=== PATIENT | female | born 1985 | race Caucasian/White ===

== ENCOUNTER → 2020-03-30 13:06 | Outpatient (CLI) | payer OTHER, SELFPAY ==
--- NOTE | ~2020-03-30 | US_ITS ---
US breast RT complete DATE: 03/30/2020 13:30 INDICATION: Painful area of right breast, no lumps. TECHNIQUE: Complete right breast real-time imaging COMPARISON: None FINDINGS: Right breast implant is noted. No suspicious mass or shadowing of the right breast is evident. No cyst is detected. IMPRESSION: BI-RADS Category 1: Negative Recommendation: Routine mammographic screening beginning at age 35 and 40 Reviewed, dictated and finalized at [facility] Reviewed, dictated and finalized at [facility].
== END ==
PROVIDERS: PCP Family Medicine; Visit Provider Family Medicine
DX: N64.4 Mastodynia (principal); Z96.89 Presence of other specified functional implants
CPT/HCPCS: 76641

== ENCOUNTER 2022-02-12 16:35 | Emergency (ER) | payer OTHER, SELFPAY ==
[2022-02-12 16:41] VITALS: BP 112/70; PULSE 81; RESP 16; TEMP 37; O2SAT 100
--- NOTE | 2022-02-12 16:50 | ED.FEMALEGU ---
HPI - Female Genitourinary General Chief complaint: Urogenital-Female Stated complaint: UTI SYMPTOMS Time Seen by Provider: 02/12/22 16:54 Source: patient and RN notes reviewed Mode of arrival: ambulatory Limitations: no limitations History of Present Illness HPI Narrative: 36-year-old female presents concern for urinary tract infection. She reports yesterday she started having frequency, urgency, dysuria, low back pain. She reports she has had urinary tract infections in the past. She denies body aches, chills, sweats, fever, abdominal pain, nausea, vomiting. She reports she took Azo today MD elicited complaint: UTI Related Data Allergies Allergy/AdvReac Type Severity Reaction Status Date / Time No Known Allergies Allergy Verified 02/12/22 16:42 Review of Systems Review of Systems: CONSTITUTIONAL: Denies malaise, chills, sweats, or fever. CARDIOVASCULAR: Denies chest pain, palpitations, or edema. RESPIRATORY: Denies cough or dyspnea. GASTROINTESTINAL: Denies abdominal pain, nausea, vomiting, diarrhea GENITOURINARY: Reports dysuria, frequency, urgency, suprapubic pressure. Denies flank pain or hematuria. SKIN: Denies rash or itching. MUSCULOSKELETAL: Reports low back pain. Denies myalgia. All systems reviewed & are unremarkable except as noted in HPI and below PMFSH Past Medical History Medical History (Updated 02/12/22 @ 16:58 by Yanet Stroud NP) Cholecystitis Migraines, neuralgic MVP (mitral valve prolapse) Surgical History Surgical History H/O breast augmentation History of tonsillectomy and adenoidectomy Hx laparoscopic cholecystectomy Social History Social History Social History: Second hand tobacco smoke exposure: No Alcohol intake: current Alcohol use details: Occasionally Substance use: never Substance use type: does not use Gender identity (if verbalized by the patient): Female Sexual Orientation (if Verbalized by the Patient): Straight or Heterosexual Comments At time of signature, agree with nursing past medical, surgical, social and family history. There is no relevant family history pertinent to the presenting complaint Exam Narrative: GENERAL: Well-appearing, well-nourished, and in no acute distress. HEAD: Normocephalic. EYES: PERRLA, conjunctivae clear. NECK: Supple. No lymphadenopathy CHEST: Clear to auscultation. No respiratory distress. HEART: Regular rate and rhythm. ABDOMEN: Soft, nontender upon palpation, nondistended, normal active bowel sounds, no palpable or pulsatile masses, no guarding. No CVA tenderness SKIN: Warm, dry, no rash. NEURO: Alert and oriented x3. PSYCH: Normal mood and affect Course Course Emergency Course: Patient is aware of diagnosis, understands and agrees to treatment plan. Anticipatory guidance given. Patient agrees to follow-up as directed and is aware of reasons to seek care at the emergency department. Portions of this record may have been created with voice recognition software Level of Care: Express Care Visit Vital Signs Vital signs: Vital Signs Temperature 98.6 F 02/12/22 16:41 Pulse Rate 81 02/12/22 16:41 Respiratory Rate 16 02/12/22 16:41 Blood Pressure 112/70 02/12/22 16:41 Pulse Oximetry 100 02/12/22 16:41 Oxygen Delivery Room Air 02/12/22 16:41 Temperature 98.6 F 02/12/22 16:41 Pulse Rate 81 02/12/22 16:41 Respiratory Rate 16 02/12/22 16:41 Blood Pressure 112/70 02/12/22 16:41 Pulse Oximetry 100 02/12/22 16:41 Oxygen Delivery Room Air 02/12/22 16:41 Reviewed. MDM - Female Genitourinary MDM Narrative Medical decision making narrative: Exam findings and UA show no acute concerns or changes; patient is non-toxic appearing and is in no distress. Patient is appropriate for outpatient treatment and follow-up. Differential Diagnosis Differential diagno
== END 2022-02-12 17:04 | disposition home or self-care (01) ==
PROVIDERS: Emergency Provider Nurse Practitioner; PCP Family Medicine
DX: R35.0 Frequency of micturition (principal); R39.15 Urgency of urination; R30.0 Dysuria; M54.50 Low back pain, unspecified; I34.1 Nonrheumatic mitral (valve) prolapse
CPT/HCPCS: 81003; 87077; 87086; 87186; 99213; G0463

== ENCOUNTER 2022-06-01 00:45 | Day surgery (SDC) | payer OTHER, SELFPAY ==
[2022-05-24 15:05] VITALS: BMI 28.5
[2022-06-01 11:09] VITALS: BP 115/56; PULSE 71; RESP 20; TEMP 36.6; O2SAT 100; BMI 27.8
[2022-06-01] MEDS: LACTATED RINGERS 1,000 ML 150 ML IV CONT (11:17)
--- NOTE | 2022-06-01 11:57 | PM.HPGS ---
History of Present Illness History of Present Illness Consent: Risks, benefits, and alternatives have been discussed and questions answered. Patient agrees to proceed with procedure. Chief complaint: IBS Narrative: Elayne Alvarez is a 36 year old female with intermittent abdominal cramping and diarrhea after eating, never had colonoscopy. Diagnosed with ibs and using elavil with hyoscyamine Review of Systems Constitutional: Constitutional: Denies headache(s) and Denies weakness Eyes: Eyes: Denies blurry vision ENT: Reports Normal hearing present, Denies headache(s) and Denies neck pain Cardiovascular: Cardiovascular: Denies chest pain and Denies dyspnea Respiratory: Respiratory: Denies dyspnea Gastrointestinal: Gastrointestinal: Reports no additional gastrointestinal complaints Genitourinary: Genitourinary: Denies dysuria Musculoskeletal: Musculoskeletal: Denies neck pain Integumentary/Breasts: Skin/Breast: Denies dry skin Neurologic: Reports Normal hearing present, Denies headache(s) and Denies weakness Psychiatric: Psychiatric: Denies anxiety Endocrine: Endocrine: Denies change in body appearance Hematologic/Lymphatic: Hematologic/Lymphatic: Denies easy bleeding Allergic/Immunologic: Allergic/Immunologic: Denies urticaria PMFSH Past Medical History Medical History Cholecystitis Migraines, neuralgic MVP (mitral valve prolapse) Surgical History Surgical History H/O breast augmentation History of tonsillectomy and adenoidectomy Hx laparoscopic cholecystectomy Social History Social History (Updated 05/03/22 @ 09:28 by Renae Jama) Social History: Smoking status: Never smoker Second hand tobacco smoke exposure: No Alcohol intake: current Alcohol use details: Occasionally Substance use: never Substance use type: does not use Living arrangements: with family Gender identity (if verbalized by the patient): Female Sexual Orientation (if Verbalized by the Patient): Straight or Heterosexual Spiritual care concerns: No Meds Home Medications and Allergies Home Medications Medication Instructions Recorded Confirmed Type escitalopram oxalate 20 mg tablet 20 mg PO DAILY #90 tabs 02/17/22 05/24/22 Rx rimegepant 75 mg disintegrating 75 mg PO ONCE PRN migraine 05/03/22 05/24/22 Rx tablet (Nurtec ODT) headache #20 tabs amitriptyline 10 mg tablet 20 mg PO HS 05/24/22 05/24/22 History hyoscyamine sulfate 0.125 mg tablet 0.125 mg PO QID PRN Spasms 05/24/22 05/24/22 History ondansetron HCl 4 mg tablet 4 mg PO Q8H PRN Migraine Headache 05/24/22 05/24/22 History Allergies Allergy/AdvReac Type Severity Reaction Status Date / Time sulfamethoxazole Allergy Mild Dizziness Verified 06/01/22 11:07 [From Bactrim] trimethoprim [From Bactrim] Allergy Mild Dizziness Verified 06/01/22 11:07 Vital Signs Vital Signs - 24 hr 06/01/22 11:09 Temperature 97.8 F Pulse Rate 71 Respiratory Rate 20 Blood Pressure 115/56 L Pulse Oximetry 100 Oxygen Delivery Room Air Exam Const: General: comfortable and no acute distress HENMT: Face/Nose/Sinus: Normal nares present Eyes: General: appearance normal, both eyes and all related structures Neck: Neck: no JVD Resp: Auscultation: clear to auscultation bilaterally Cardio: Rate: regular rate Rhythm: regular rhythm GI: Inspection: non-distended GI Palp: Yes Soft to palpation Skin: General skin exam: normal color Neuro: General: gait normal Speech: normal speech Extrem: General: normal to inspection Psych: Mental Status: mental status grossly normal Assessment and Plan Assessment and plan (1) IBS (irritable bowel syndrome): Code(s): K58.9 - Irritable bowel syndrome without diarrhea Status: Acute Assessment and Plan: colonscopy with random bx
--- NOTE | 2022-06-01 12:01 | WPDANESEPPF ---
Anes - Initial Pre Proc Eval Procedure: Operation Date: 06/01/22 12:30 Proposed Procedures p Colonoscopy - Twin Ferraro MD Date/Time: 06/01/22 12:01 Surgeon: Twin Ferraro MD Pre Op Diagnosis: IBS Patient Data Age: 36 Gender: F Height: 1.63 m Weight: 73.5 kg Last Vital Signs Temp 97.8 F 06/01/22 11:09 Pulse 71 06/01/22 11:09 Resp 20 06/01/22 11:09 BP 115/56 L 06/01/22 11:09 Pulse Ox 100 06/01/22 11:09 O2 Del Method Room Air 06/01/22 11:09 Allergies Allergy/AdvReac Type Severity Reaction Status Date / Time sulfamethoxazole Allergy Mild Dizziness Verified 06/01/22 11:07 [From Bactrim] trimethoprim [From Bactrim] Allergy Mild Dizziness Verified 06/01/22 11:07 Home Medications Medication Instructions Recorded Confirmed Type escitalopram oxalate 20 mg tablet 20 mg PO DAILY #90 tabs 02/17/22 05/24/22 Rx rimegepant 75 mg disintegrating 75 mg PO ONCE PRN migraine 05/03/22 05/24/22 Rx tablet (Nurtec ODT) headache #20 tabs amitriptyline 10 mg tablet 20 mg PO HS 05/24/22 05/24/22 History hyoscyamine sulfate 0.125 mg tablet 0.125 mg PO QID PRN Spasms 05/24/22 05/24/22 History ondansetron HCl 4 mg tablet 4 mg PO Q8H PRN Migraine Headache 05/24/22 05/24/22 History Patient hx anesthesia problems: none Family hx anesthesia problems: none Results Review: All pre-operative results and documents have been reviewed as part of the pre-operative evaluation. [facility] Past Medical History Medical History Cholecystitis Migraines, neuralgic MVP (mitral valve prolapse) Surgical History Surgical History H/O breast augmentation History of tonsillectomy and adenoidectomy Hx laparoscopic cholecystectomy Social History Social History (Updated 05/03/22 @ 09:28 by Renae Mata Social History: Smoking status: Never smoker Second hand tobacco smoke exposure: No Alcohol intake: current Alcohol use details: Occasionally Substance use: never Substance use type: does not use Living arrangements: with family Gender identity (if verbalized by the patient): Female Sexual Orientation (if Verbalized by the Patient): Straight or Heterosexual Spiritual care concerns: No Anes - Eval Final PreProcedure Day of Procedure 06/01/22 12:01 Patient weight: normal Heart: regular rate and rhythm Lungs: clear to auscultation Airway: Mallampati scale class II Neurological: alert and oriented Last oral intake: >/= 8 hours ASA classification: II Emergent: no Anesthetic plan: proceed Anesthesia type and monitoring: general GIVS and standard monitoring Results Review: All pre-operative results and documents have been reviewed as part of the pre-operative evaluation. Informed Consent: The patient's anesthetic plan and its attendant risks and benefits were discussed with the patient/family/POA. Questions were solicited and answers provided to the satisfaction of the patient/family/POA.
[2022-06-01 12:20] VITALS: BP 101/61; PULSE 65; RESP 19; O2SAT 100
[2022-06-01 12:30] VITALS: BP 109/72; PULSE 50; RESP 16; O2SAT 100
[2022-06-01 12:40] VITALS: BP 125/67; PULSE 66; RESP 23; O2SAT 100
== END 2022-06-01 12:47 | disposition home or self-care (01) ==
PROVIDERS: PCP Family Medicine; Visit Provider Internal Medicine Gastroenterology
PROC: 0DJD8ZZ Inspection of Lower Intestinal Tract, Via Natural or Artificial Opening Endoscopic (ICD-10-PCS; CPT 45378; principal; 2022-06-01 12:30)
DX: K58.0 Irritable bowel syndrome with diarrhea (principal); K57.30 Diverticulosis of large intestine without perforation or abscess without bleeding; I34.1 Nonrheumatic mitral (valve) prolapse
CPT/HCPCS: 45380; 88305; J2704; J7120

== ENCOUNTER 2022-08-09 00:22 | Day surgery (SDC) | payer OTHER, SELFPAY ==
[2022-07-26 14:25] VITALS: BMI 29.5
--- NOTE | 2022-08-09 07:24 | WPDANESEPPF ---
Anes - Initial Pre Proc Eval Procedure: Operation Date: 08/09/22 09:00 Proposed Procedures p Esophagogastroduodenoscopy - Twin Ferraro MD Date/Time: 08/09/22 07:24 Surgeon: Twin Ferraro MD Pre Op Diagnosis: N&V, GERD Patient Data Age: 36 Gender: F Height: 1.63 m Weight: 78 kg Allergies Allergy/AdvReac Type Severity Reaction Status Date / Time sulfamethoxazole AdvReac Mild Dizziness Verified 08/09/22 07:44 [From Bactrim] trimethoprim [From Bactrim] AdvReac Mild Dizziness Verified 08/09/22 07:44 Home Medications Medication Instructions Recorded Confirmed Type rimegepant 75 mg disintegrating 75 mg PO ONCE PRN migraine 05/03/22 08/09/22 Rx tablet (Nurtec ODT) headache #20 tabs amitriptyline 10 mg tablet 20 mg PO HS 05/24/22 08/09/22 History omeprazole 40 mg capsule,delayed 40 mg PO DAILY #30 caps 07/05/22 08/09/22 Rx release escitalopram oxalate 20 mg tablet 20 mg PO DAILY #90 tabs 08/06/22 08/09/22 Rx Patient hx anesthesia problems: none Family hx anesthesia problems: none Results Review: All pre-operative results and documents have been reviewed as part of the pre-operative evaluation. [facility] Past Medical History Medical History (Updated 08/09/22 @ 07:25 by Lakhwinder Baez, ) Anxiety Cholecystitis Hyperlipidemia Migraines, neuralgic MVP (mitral valve prolapse) KENNEDY and COPD overlap syndrome Surgical History Surgical History H/O breast augmentation History of tonsillectomy and adenoidectomy Hx laparoscopic cholecystectomy Social History Social History (Updated 07/05/22 @ 10:24 by Renae Jama) Social History: Smoking status: Never smoker Second hand tobacco smoke exposure: No Alcohol intake: current Alcohol use details: Occasionally Substance use: never Substance use type: does not use Living arrangements: with family Occupation/Education: occupation Gender identity (if verbalized by the patient): Female Sexual Orientation (if Verbalized by the Patient): Straight or Heterosexual Spiritual care concerns: No Anes - Eval Final PreProcedure Day of Procedure 08/09/22 07:24 Patient weight: overweight Heart: regular rate and rhythm Lungs: clear to auscultation Airway: Mallampati scale class II Neurological: alert and oriented Last oral intake: >/= 8 hours ASA classification: III Emergent: no Anesthetic plan: proceed Anesthesia type and monitoring: general GIVS and standard monitoring Results Review: All pre-operative results and documents have been reviewed as part of the pre-operative evaluation. Informed Consent: The patient's anesthetic plan and its attendant risks and benefits were discussed with the patient/family/POA. Questions were solicited and answers provided to the satisfaction of the patient/family/POA.
[2022-08-09 07:49] VITALS: BP 110/62; PULSE 64; RESP 16; TEMP 36; O2SAT 100; BMI 28.8
[2022-08-09] MEDS: LACTATED RINGERS 1,000 ML 150 ML IV CONT (07:56)
--- NOTE | 2022-08-09 08:27 | PM.HPGS ---
History of Present Illness History of Present Illness Consent: Risks, benefits, and alternatives have been discussed and questions answered. Patient agrees to proceed with procedure. Chief complaint: N&V, GERD Narrative: Elayne Alvarez is a 36 year old female with ibs on elavil, unremarkable colonoscopy. Still with belching, fullness sensation after eating and diarrhea. Recently started on omeprazole and too early to say if any difference Review of Systems Constitutional: Constitutional: Denies headache(s) and Denies weakness Eyes: Eyes: Denies blurry vision ENT: Reports Normal hearing present, Denies headache(s) and Denies neck pain Cardiovascular: Cardiovascular: Denies chest pain and Denies dyspnea Respiratory: Respiratory: Denies dyspnea Gastrointestinal: Gastrointestinal: Reports no additional gastrointestinal complaints Genitourinary: Genitourinary: Denies dysuria Musculoskeletal: Musculoskeletal: Denies neck pain Integumentary/Breasts: Skin/Breast: Denies dry skin Neurologic: Reports Normal hearing present, Denies headache(s) and Denies weakness Psychiatric: Psychiatric: Denies anxiety Endocrine: Endocrine: Denies change in body appearance Hematologic/Lymphatic: Hematologic/Lymphatic: Denies easy bleeding Allergic/Immunologic: Allergic/Immunologic: Denies urticaria PMFSH Past Medical History Medical History (Updated 08/09/22 @ 07:25 by Lakhwinder Baez, ) Anxiety Cholecystitis Hyperlipidemia Migraines, neuralgic MVP (mitral valve prolapse) [place]EDY and COPD overlap syndrome Surgical History Surgical History H/O breast augmentation History of tonsillectomy and adenoidectomy Hx laparoscopic cholecystectomy Social History Social History (Updated 07/05/22 @ 10:24 by Renae Jama) Social History: Smoking status: Never smoker Second hand tobacco smoke exposure: No Alcohol intake: current Alcohol use details: Occasionally Substance use: never Substance use type: does not use Living arrangements: with family Occupation/Education: occupation Gender identity (if verbalized by the patient): Female Sexual Orientation (if Verbalized by the Patient): Straight or Heterosexual Spiritual care concerns: No Meds Home Medications and Allergies Home Medications Medication Instructions Recorded Confirmed Type rimegepant 75 mg disintegrating 75 mg PO ONCE PRN migraine 05/03/22 08/09/22 Rx tablet (Nurtec ODT) headache #20 tabs amitriptyline 10 mg tablet 20 mg PO HS 05/24/22 08/09/22 History omeprazole 40 mg capsule,delayed 40 mg PO DAILY #30 caps 07/05/22 08/09/22 Rx release escitalopram oxalate 20 mg tablet 20 mg PO DAILY #90 tabs 08/06/22 08/09/22 Rx Allergies Allergy/AdvReac Type Severity Reaction Status Date / Time sulfamethoxazole AdvReac Mild Dizziness Verified 08/09/22 07:44 [From Bactrim] trimethoprim [From Bactrim] AdvReac Mild Dizziness Verified 08/09/22 07:44 Vital Signs Vital Signs - 24 hr 08/09/22 07:49 Temperature 96.8 F L Pulse Rate 64 Respiratory Rate 16 Blood Pressure 110/62 Pulse Oximetry 100 Oxygen Delivery Room Air Exam Const: General: comfortable and no acute distress HENMT: Face/Nose/Sinus: Normal nares present Eyes: General: appearance normal, both eyes and all related structures Neck: Neck: no JVD Resp: Auscultation: clear to auscultation bilaterally Cardio: Rate: regular rate Rhythm: regular rhythm GI: Inspection: non-distended GI Palp: Yes Soft to palpation Skin: General skin exam: normal color Neuro: General: gait normal Speech: normal speech Extrem: General: normal to inspection Psych: Mental Status: mental status grossly normal Assessment and Plan Assessment and plan (1) IBS (irritable bowel syndrome): Code(s): K58.9 - Irritable bowel syndrome without diarrhea Status: Acute Assessment and Plan:
[2022-08-09 08:40] VITALS: BP 87/54; PULSE 65; RESP 22; O2SAT 96
[2022-08-09 08:50] VITALS: BP 91/59; PULSE 64; RESP 20; O2SAT 98
[2022-08-09 09:00] VITALS: BP 108/71; PULSE 58; RESP 22; O2SAT 98
== END 2022-08-09 09:12 | disposition home or self-care (01) ==
PROVIDERS: PCP Family Medicine; Visit Provider Internal Medicine Gastroenterology
PROC: 0DJ08ZZ Inspection of Upper Intestinal Tract, Via Natural or Artificial Opening Endoscopic (ICD-10-PCS; CPT 43235; principal; 2022-08-09 09:00)
DX: K29.70 Gastritis, unspecified, without bleeding (principal); F41.9 Anxiety disorder, unspecified; I34.1 Nonrheumatic mitral (valve) prolapse; G47.33 Obstructive sleep apnea (adult) (pediatric)
CPT/HCPCS: 43239; 88305; J2704; J7120

== ENCOUNTER 2022-11-11 12:52 | Emergency (ER) | payer OTHER, SELFPAY ==
--- NOTE | 2022-11-11 13:01 | ED.URI ---
HPI - URI/Sore Throat General Chief Complaint: Upper Respiratory Infection Stated Complaint: SINUS CONGESITON/EAR THROBBING Time Seen by Provider: 11/11/22 13:01 Source: patient Mode of arrival: ambulatory Limitations: no limitations History of Present Illness HPI Narrative: 37-year-old female presents with complaint sinus congestion, postnasal drainage for the past 2-3 weeks. Reports pressure to right-sided face. Reports right ear pain for 5 days. Afebrile. States that she uses Flonase daily. When right ear pain started she started taking Sudafed. No relief of symptoms. All systems reviewed and negative except as noted above. Related Data Allergies Allergy/AdvReac Type Severity Reaction Status Date / Time sulfamethoxazole AdvReac Mild Dizziness Verified 08/16/22 10:03 [From Bactrim] trimethoprim [From Bactrim] AdvReac Mild Dizziness Verified 08/16/22 10:03 Review of Systems Review of Systems: CONSTITUTIONAL: Denies fever, chills, or sweats. EYES: Denies visual changes, redness, or discharge. ENT: Reports rhinorrhea, congestion, postnasal drainage, right ear pain. Denies sore throat CARDIOVASCULAR: Denies chest pain, palpitations, or edema. RESPIRATORY: Denies cough or dyspnea. GASTROINTESTINAL: Denies abdominal pain, nausea, vomiting, or diarrhea. GENITOURINARY: Denies dysuria or hematuria. SKIN: Denies rash or itching. MUSCULOSKELETAL: Denies back pain, joint pain, or myalgia. NEUROLOGIC: Denies headache, numbness, or weakness. PSYCHIATRIC: Denies anxiety or depression. All other systems reviewed are negative, except as documented in HPI. [facility] Past Medical History Medical History Anxiety Cholecystitis Hyperlipidemia Migraines, neuralgic MVP (mitral valve prolapse) [place] and COPD overlap syndrome Surgical History Surgical History H/O breast augmentation History of tonsillectomy and adenoidectomy Hx laparoscopic cholecystectomy Social History Social History (Updated 08/17/22 @ 22:03 by Meron Moses MD) Social History: Smoking status: Never smoker Second hand tobacco smoke exposure: No Alcohol intake: current Alcohol use details: Occasionally Substance use: never Substance use type: does not use Lack of Transportation: No Lack of Food: Never True Current Housing: I Have Housing Concerned About Future Housing: No Difficulty Paying Gas/Electric Bills: No Difficulty Paying for Meds: No Currently Unemployed: No Education: Bachelor's Degree Living arrangements: with family Occupation/Education: occupation Gender identity (if verbalized by the patient): Female Sexual Orientation (if Verbalized by the Patient): Straight or Heterosexual Spiritual care concerns: No Agree to blood products: Yes Comments At time of signature, agree with nursing past medical, surgical, social and family history. There is no relevant family history pertinent to the presenting complaint. Exam Narrative: GENERAL: This is a well-nourished, well-developed patient, in no apparent distress. HEAD: normocephalic, atraumatic. EYES: PERRL. Sclera clear/white. Vision is grossly intact. EARS: External ears normal, auditory canals clear and without drainage, fluid and mild erythema to right ear with slight bulging. No perforation bilaterally. Left TM is normal. NOSE: External nose normal with clear nasal drainage, erythema and swelling to both nares. Left-sided frontal and maxillary sinus tenderness. THROAT: Mucous membranes moist, postnasal drainage noted. NECK: Neck supple, non-tender without lymphadenopathy, masses or thyromegaly. CARDIOVASCULAR: Regular rate and rhythm without murmurs, gallops, or rubs. RESPIRATORY: Clear to auscultation. Breath sounds equal bilaterally. No wheezes, rales, or rhonchi. SKIN: warm, Dry, intact with no suspicious lesions or rash, good
[2022-11-11 13:02] VITALS: BP 105/74; PULSE 69; RESP 16; TEMP 36.4; O2SAT 100
== END 2022-11-11 13:15 | disposition home or self-care (01) ==
PROVIDERS: Emergency Provider Nurse Practitioner Family; PCP Family Medicine
DX: J01.90 Acute sinusitis, unspecified (principal); H65.01 Acute serous otitis media, right ear; E78.5 Hyperlipidemia, unspecified; I34.1 Nonrheumatic mitral (valve) prolapse
CPT/HCPCS: 99213; G0463

== ENCOUNTER 2022-12-22 14:43 | Emergency (ER) | payer OTHER, SELFPAY ==
[2022-12-22 14:58] VITALS: BP 109/77; PULSE 78; RESP 16; TEMP 37.3; O2SAT 100
--- NOTE | 2022-12-22 15:01 | ED.WOUNDLAC ---
HPI - Wound/Laceration General Chief Complaint: Wound/Laceration Stated Complaint: left hand lac Time Seen by Provider: 12/22/22 15:01 Source: patient and RN notes reviewed History of Present Illness HPI narrative: Patient is a 37-year-old female presents to urgent care with complaints of a puncture wound to the left hand. Patient states that she was doing dishes and a knife punctured the web between the thumb and index finger. Patient states that happened just prior to arrival. Patient is unsure she is up-to-date on her tetanus. No other acute complaints. No acute distress noted. Patient aware of the plan of care. Some parts of this dictation were generated by voice recognition software and may contain typographical and/or grammatical inaccuracies. Related Data Allergies Allergy/AdvReac Type Severity Reaction Status Date / Time sulfamethoxazole AdvReac Mild Dizziness Verified 12/22/22 15:11 [From Bactrim] trimethoprim [From Bactrim] AdvReac Mild Dizziness Verified 12/22/22 15:11 Review of Systems Review of Systems: CONSTITUTIONAL: Denies fever, chills, or sweats. EYES: Denies visual changes, redness, or discharge. ENT: Denies rhinorrhea, congestion, sore throat, or otalgia. CARDIOVASCULAR: Denies chest pain, palpitations, or edema. RESPIRATORY: Denies cough or dyspnea. GASTROINTESTINAL: Denies abdominal pain, nausea, vomiting, or diarrhea. GENITOURINARY: Denies dysuria or hematuria. SKIN: Reports of a puncture wound between the web of the left thumb and index finger MUSCULOSKELETAL: Denies back pain, joint pain, or myalgia. NEUROLOGIC: Denies headache, numbness, or weakness. All other systems reviewed are negative, except as documented in HPI. [facility] Past Medical History Medical History Anxiety Cholecystitis Hyperlipidemia Migraines, neuralgic MVP (mitral valve prolapse) KENNEDY and COPD overlap syndrome Surgical History Surgical History H/O breast augmentation History of tonsillectomy and adenoidectomy Hx laparoscopic cholecystectomy Social History Social History Social History: Smoking status: Never smoker Second hand tobacco smoke exposure: No Alcohol intake: current Alcohol use details: Occasionally Substance use: never Substance use type: does not use Lack of Transportation: No Lack of Food: Never True Current Housing: I Have Housing Concerned About Future Housing: No Difficulty Paying Gas/Electric Bills: No Difficulty Paying for Meds: No Currently Unemployed: No Education: Bachelor's Degree Living arrangements: with family Occupation/Education: occupation Gender identity (if verbalized by the patient): Female Sexual Orientation (if Verbalized by the Patient): Straight or Heterosexual Spiritual care concerns: No Agree to blood products: Yes Comments At the time of my signature, I reviewed and agree with the nursing past medical, surgical, social, and family history. There is no relevant family history pertinent to the patient complaint. Exam Narrative: GENERAL: This is a well-nourished, well-developed patient, in no apparent distress. HEAD: normocephalic, atraumatic. EYES: PERRL. Sclera clear/white. Vision is grossly intact. EARS: External ears normal NOSE: External nose normal with no obvious nasal discharge, nares without redness, no rhinorrhea. THROAT: Mucous membranes moist NECK: Neck supple, SKIN: 0.25 cm puncture wound between the web of the left thumb and index finger. Warm, intact with no suspicious lesions or rash, good texture and turgor. NEURO: awake, alert, and oriented to person, place and time. There were no obvious focal neurologic abnormalities. EXTREMITIES: No clubbing, cyanosis, or edema. No joint tenderness, effusion, or edema noted. Range of motion left ex
[2022-12-22] MEDS: TETANUS,DIPHTHERIA,AC PERTUSSIS ADULT (0.5 ML) BOOSTRIX IM (15:08)
== END 2022-12-22 15:26 | disposition home or self-care (01) ==
PROVIDERS: Emergency Provider Nurse Practitioner Family; PCP Family Medicine
DX: S61.412A Laceration without foreign body of left hand, initial encounter (principal); W26.0XXA Contact with knife, initial encounter; Y93.G1 Activity, food preparation and clean up; Z23 Encounter for immunization; E78.5 Hyperlipidemia, unspecified; I34.1 Nonrheumatic mitral (valve) prolapse; J44.9 Chronic obstructive pulmonary disease, unspecified; F41.9 Anxiety disorder, unspecified
CPT/HCPCS: 12001; 90471; 90715; 99212; G0463

== ENCOUNTER 2023-04-08 11:36 | Emergency (ER) | payer OTHER, SELFPAY ==
[2023-04-08 11:44] VITALS: BP 112/66; PULSE 65; RESP 18; TEMP 36.8; O2SAT 100
--- NOTE | 2023-04-08 12:05 | PC.NURSE ---
NO CULTURE PER PROVIDER. PT. SENT TO ER.
--- NOTE | 2023-04-08 12:08 | ED.ABDPAIN ---
HPI - Abdominal Pain General Chief Complaint: Abdominal Pain Stated Complaint: right side pain Source: patient Mode of arrival: ambulatory Limitations: no limitations History of Present Illness HPI narrative: 37-year-old female presents to [facility] with complaints of pain to right lower abdomen, nausea and decreased appetite since yesterday. Patient denies fever, body aches or chills. Patient reports the pain is worse when she is sitting. Last menstrual period was 2 weeks ago. Patient denies recent travel. Patient denies history of kidney stones. MD elicited complaint: abdominal pain Onset (ago): day(s) (1) Relieving factors: nothing Associated symptoms: nausea Related Data Allergies Allergy/AdvReac Type Severity Reaction Status Date / Time sulfamethoxazole AdvReac Mild Dizziness Verified 12/22/22 15:11 [From Bactrim] trimethoprim [From Bactrim] AdvReac Mild Dizziness Verified 12/22/22 15:11 Review of Systems Constitutional: Constitutional: Denies chills, Denies fatigue, Denies fever(s) and Denies weakness ENT: Denies epistaxis and Denies nasal congestion Cardiovascular: Cardiovascular: Denies chest pain Respiratory: Respiratory: Denies cough, Denies dyspnea and Denies wheezing Gastrointestinal: Gastrointestinal: Reports abdominal pain, Denies bloating, Denies constipation, Denies heartburn, Denies diarrhea, Reports nausea and Denies vomiting Musculoskeletal: Musculoskeletal: Denies muscle cramps Integumentary/Breasts: Skin/Breast: Denies rash and Denies skin ulcer Neurologic: Denies syncope and Denies headache(s) PMFSH Past Medical History Medical History Anxiety Cholecystitis Hyperlipidemia Migraines, neuralgic MVP (mitral valve prolapse) KENNEDY and COPD overlap syndrome Surgical History Surgical History H/O breast augmentation History of tonsillectomy and adenoidectomy Hx laparoscopic cholecystectomy Social History Social History Social History: Smoking status: Never smoker Second hand tobacco smoke exposure: No Alcohol intake: current Alcohol use details: Occasionally Substance use: never Substance use type: does not use Lack of Transportation: No Lack of Food: Never True Current Housing: I Have Housing Concerned About Future Housing: No Difficulty Paying Gas/Electric Bills: No Difficulty Paying for Meds: No Currently Unemployed: No Education: Bachelor's Degree Living arrangements: with family Occupation/Education: occupation Gender identity (if verbalized by the patient): Female Sexual Orientation (if Verbalized by the Patient): Straight or Heterosexual Spiritual care concerns: No Agree to blood products: Yes Comments At time of signature, I agree with nursing past medical, surgical, social and family history. There is no relevant family history pertinent to the presenting complaint. Exam Const: General: healthy appearing and no acute distress Nutritional Appearance: well nourished Orientation/consciousness: patient oriented x3 Limitations: no limitations HENMT: Head: normal to inspection Eyes: Conjunctivae: conjunctivae normal Neck: Neck: normal visual inspection Resp: Effort & Inspection: normal respiratory effort and not labored Auscultation: clear to auscultation bilaterally, no crackles, no rales and no rhonchi Cardio: Rate: regular rate Rhythm: regular rhythm Heart sounds: no murmurs GI: GI Palp: Yes Soft to palpation, Yes Tenderness to palpation present (GI), No Guarding due to palpation present (GI), No Rigid due to palpation, No Hernia present and No Palpable mass present Auscultation: normal bowel sounds Other: Pain noted to right lower quadrant of abdomen upon palpation. There is no area of swelling noted. : General: Yes bladder normal to pa
== END 2023-04-08 12:10 | disposition short-term general hospital (02) ==
PROVIDERS: Emergency Provider Nurse Practitioner Family; PCP Family Medicine
DX: R10.31 Right lower quadrant pain (principal); E78.5 Hyperlipidemia, unspecified; I34.1 Nonrheumatic mitral (valve) prolapse
CPT/HCPCS: 81003; 81025; 99212; G0463

== ENCOUNTER 2024-02-06 15:52 | Outpatient (CLI) | payer OTHER, SELFPAY ==
--- NOTE | ~2024-02-06 | XR_ITS ---
EXAM: XR abdomen obstructive series DATE: 02/06/2024 16:12 HISTORY: R14.0 - Abdominal distension (gaseous) . COMPARISON: None available. FINDINGS: Clear lung bases. Cholecystectomy clips Normal bowel gas pattern. No organomegaly. Multipl e pelvic phleboliths. No free air. Regional bones and soft tissues normal for age. IMPRESSION: No radiographic evidence of obstruction or ileus. Reviewed, dictated and finalized at location K.
== END 2024-02-06 15:53 | disposition home or self-care (01) ==
LOC: ANHIMG 15:54
PROVIDERS: PCP Family Medicine; Visit Provider Family Medicine
DX: R14.0 Abdominal distension (gaseous) (principal)
CPT/HCPCS: 74019

== ENCOUNTER 2024-03-05 16:53 | Emergency (ER) | payer OTHER, SELFPAY ==
[2024-03-05 16:56] VITALS: BP 113/71; PULSE 78; RESP 20; TEMP 37; O2SAT 100
--- NOTE | 2024-03-05 17:08 | ED.FEMALEGU ---
HPI - Female Genitourinary General Chief complaint: Urogenital-Female Stated complaint: poss uti History of Present Illness HPI Narrative: PATIENT PRESENTS WITH URINARY FREQUENCY AND BURNING. PATIENT STATES SHE WAS TREATED FOR UTI AND DID COMPLETE HER ANTIBIOTICS. PATIENT STATES SHE TOOK AZO THIS MORNING FOR HER URINARY DISCOMFORT. Related Data Home Medications Medication Instructions Recorded Confirmed escitalopram oxalate 20 mg tablet 20 mg PO DAILY 03/05/24 03/05/24 Allergies Allergy/AdvReac Type Severity Reaction Status Date / Time sulfamethoxazole AdvReac Mild Dizziness Verified 02/06/24 15:01 [From Bactrim] trimethoprim [From Bactrim] AdvReac Mild Dizziness Verified 02/06/24 15:01 Review of Systems Review of Systems: CONSTITUTIONAL: DENIES FEVER, CHILLS, OR SWEATS. EYES: DENIES VISUAL CHANGES, REDNESS, OR DISCHARGE. ENT: DENIES RHINORRHEA, CONGESTION, SORE THROAT, OR OTALGIA. CARDIOVASCULAR: DENIES CHEST PAIN, PALPITATIONS, OR EDEMA. RESPIRATORY: DENIES COUGH OR DYSPNEA. GASTROINTESTINAL: DENIES ABDOMINAL PAIN, NAUSEA, VOMITING, OR DIARRHEA. GENITOURINARY: DENIES DYSURIA OR HEMATURIA. SKIN: DENIES RASH OR ITCHING. MUSCULOSKELETAL: DENIES BACK PAIN, JOINT PAIN, OR MYALGIA. NEUROLOGIC: DENIES HEADACHE, NUMBNESS, OR WEAKNESS. PSYCHIATRIC: DENIES ANXIETY OR DEPRESSION. ON LICENSE OF [facility] Past Medical History Medical History Anxiety Cholecystitis Hyperlipidemia Migraines, neuralgic MVP (mitral valve prolapse) KENNEDY and COPD overlap syndrome Surgical History Surgical History H/O breast augmentation History of tonsillectomy and adenoidectomy Hx laparoscopic cholecystectomy Social History Social History (Updated 02/06/24 @ 15:02 by Renae Jama) Social History: Smoking status: Never smoker Second hand tobacco smoke exposure: No Alcohol intake: current Alcohol use details: Occasionally Substance use: never Substance use type: does not use Do You Feel Safe in your Home?: Yes Lack of Transportation: No Lack of Food: Never True Current Housing: I Have Housing Concerned About Future Housing: No Difficulty Paying Gas/Electric Bills: No Difficulty Paying for Meds: No Currently Unemployed: No Education: Bachelor's Degree Living arrangements: with family Occupation/Education: occupation Gender identity (if verbalized by the patient): Female Sexual Orientation (if Verbalized by the Patient): Straight or Heterosexual Spiritual care concerns: No Agree to blood products: Yes Comments AT TIME OF SIGNATURE, AGREE WITH NURSING PAST MEDICAL, SURGICAL, SOCIAL AND FAMILY HISTORY. THERE IS NO RELEVANT FAMILY HISTORY PERTINENT TO THE PRESENTING COMPLAINT Exam Narrative: NORMAL ADULT EXAM NORMAL ADULT EXAM GENERAL: WELL-APPEARING, WELL-NOURISHED, AND IN NO ACUTE DISTRESS. HEAD: NORMOCEPHALIC, ATRAUMATIC. EYES: PERRLA AND EOMI. ENT: NARES CLEAR, NO RHINORRHEA OR EPISTAXIS. MUCOUS MEMBRANES MOIST. NECK: SUPPLE. CHEST: CLEAR TO AUSCULTATION. NO RESPIRATORY DISTRESS. HEART: REGULAR RATE AND RHYTHM. NO MURMUR HEARD. NORMAL PERIPHERAL PULSES. ABDOMEN: SOFT, NONTENDER, NONDISTENDED, NORMAL ACTIVE BOWEL SOUNDS. NO FLANK PAIN NO PELVIC PAIN NO SUPRAPUBIC PAIN EXTREMITIES: NORMAL RANGE OF MOTION. NO EDEMA. SKIN: WARM, DRY, NO RASH. NEURO: NO FOCAL DEFICITS. ALERT AND ORIENTED X3. IKE COMA SCALE EYE OPENING: SPONTANEOUS 4 IKE COMA SCALE MOTOR: OBEYS COMMANDS 6 IKE COMA SCALE VERBAL: ORIENTED 5 IKE COMA SCALE TOTAL 15 Course Course Level of Care: Express Care Visit Vital Signs Vital signs: Vital Signs Temperature 37.0 C 03/05/24 16:56 Pulse Rate 78 03/05/24 16:56 Respiratory Rate 20 03/05/24 16:56 Blood Pressure 113/71 03/05/24 16:56 Pulse Oximetry 100 03/05/24 16:56 Oxygen Delivery Room Air 03/05/24 16:56 Khai
[2024-03-05 17:15] LABS: EDUAAPPEAR Clear; EDUABILI Negative; EDUABLOOD 2+; EDUACOLOR1 Orange; EDUAGLUCOSE Trace; EDUAKETONE Negative; EDUALEUKO Negative; EDUANITRATE Positive; EDUAPH 6.5; EDUAPROTEIN Trace
== END 2024-03-05 17:16 | disposition home or self-care (01) ==
PROVIDERS: Emergency Provider Nurse Practitioner Family; PCP Family Medicine
DX: R30.0 Dysuria (principal); R39.15 Urgency of urination; E78.5 Hyperlipidemia, unspecified; I34.1 Nonrheumatic mitral (valve) prolapse; F41.9 Anxiety disorder, unspecified
CPT/HCPCS: 81003; 87086; 87088; 99213; G0463

== ENCOUNTER 2024-06-10 16:51 | Emergency (ER) | payer OTHER, SELFPAY ==
[2024-06-10 16:55] VITALS: BP 113/72; PULSE 76; RESP 20; TEMP 36.7; O2SAT 100
--- NOTE | 2024-06-10 16:58 | ED.FEMALEGU ---
HPI - Female Genitourinary General Chief complaint: Urogenital-Female Stated complaint: Urinary Problem Time Seen by Provider: 06/10/24 17:07 Source: patient and RN notes reviewed Mode of arrival: ambulatory Limitations: no limitations History of Present Illness HPI Narrative: 38-year-old female presents with concern for 6 day history of dysuria, frequency, urgency. She reports yesterday she had some mid back pain. She denies fever, body aches, chills, sweats, nausea, vomiting, abdominal pain. MD elicited complaint: UTI Related Data Allergies Allergy/AdvReac Type Severity Reaction Status Date / Time sulfamethoxazole AdvReac Mild Dizziness Verified 06/10/24 17:08 [From Bactrim] trimethoprim [From Bactrim] AdvReac Mild Dizziness Verified 06/10/24 17:08 Review of Systems Review of Systems: CONSTITUTIONAL: Denies malaise, chills, sweats, or fever. CARDIOVASCULAR: Denies chest pain, palpitations, or edema. RESPIRATORY: Denies cough or dyspnea. GASTROINTESTINAL: Denies abdominal pain, nausea, vomiting, diarrhea GENITOURINARY: Reports dysuria, frequency, urgency, suprapubic pressure. Reports flank pain. Denies hematuria. SKIN: Denies rash or itching. MUSCULOSKELETAL: Denies back pain or myalgia. All systems reviewed & are unremarkable except as noted in HPI and below PMFSH Past Medical History Medical History Anxiety Cholecystitis Hyperlipidemia Migraines, neuralgic MVP (mitral valve prolapse) KENNEDY and COPD overlap syndrome Surgical History Surgical History H/O breast augmentation History of tonsillectomy and adenoidectomy Hx laparoscopic cholecystectomy Social History Social History (Updated 02/06/24 @ 15:02 by Reane Jama) Social History: Smoking status: Never smoker Second hand tobacco smoke exposure: No Alcohol intake: current Alcohol use details: Occasionally Substance use: never Substance use type: does not use Do You Feel Safe in your Home?: Yes Lack of Transportation: No Lack of Food: Never True Current Housing: I Have Housing Concerned About Future Housing: No Difficulty Paying Gas/Electric Bills: No Difficulty Paying for Meds: No Currently Unemployed: No Education: Bachelor's Degree Living arrangements: with family Occupation/Education: occupation Gender identity (if verbalized by the patient): Female Sexual Orientation (if Verbalized by the Patient): Straight or Heterosexual Spiritual care concerns: No Agree to blood products: Yes Comments At time of signature, agree with nursing past medical, surgical, social and family history. There is no relevant family history pertinent to the presenting complaint Exam Narrative: GENERAL: Well-appearing, well-nourished, and in no acute distress. HEAD: Normocephalic. EYES: PERRLA, conjunctivae clear. NECK: Supple. No lymphadenopathy CHEST: Clear to auscultation. No respiratory distress. HEART: Regular rate and rhythm. ABDOMEN: Soft, nontender upon palpation, nondistended, normal active bowel sounds, no palpable or pulsatile masses, no guarding. No CVA tenderness SKIN: Warm, dry, no rash. NEURO: Alert and oriented x3. PSYCH: Normal mood and affect Course Course Emergency Course: Patient is aware of diagnosis, understands and agrees to treatment plan. Anticipatory guidance given. Patient agrees to follow-up as directed and is aware of reasons to seek care at the emergency department. Portions of this record may have been created with voice recognition software Level of Care: Express Care Visit Vital Signs Vital signs: Reviewed. MDM - Female Genitourinary MDM Narrative Medical decision making narrative: Exam findings and UA show no acute concerns or changes; patient is non-toxic appearing and is in no distress. Patient is appropriate for outpatient treatment and follow-up. Differential Diagnosis Differential diagnosis: Likely urinary tract infection and cystitis Critical Care Time Critical Care Time Critical Care Time: No Discharge Plan Discharge Clinical Impression: Dysuria Patient Disposition: Home, Self-Care Condition: Stable Instructions: Antibiotic Form, Urinary Tract Infection in Women (ED) Additional Instructions: We will send a urine culture to the lab; if the culture identifies an organism that the prescribed antibiotic will not treat, you will receive a phone call from an urgent care staff member and an appropriate antibiotic will be prescribed. -Your symptoms should begin to improve within a day of starting antibiotics. But you should finish all the antibiotic pills you get. Otherwise your infection might come back. -Also recommend: increase water intake. Tylenol/ibuprofen as needed for pain or fever -Follow-up with your primary care provider for urine recheck or seek ER visit if condition worsens with high fever, nausea, vomiting and severe back pain. Prescriptions: New amoxicillin-pot clavulanate 875-125 mg tablet 1 tablet PO Q12H 10 Days Qty: 20 0RF No Action escitalopram oxalate 20 mg tablet 20 mg PO DAILY Qty: 90 0RF Follow-up/Referrals: Meron Moses MD [Primary Care Provider] - Stand Alone Forms: Work/School Release IP Time of Disposition: 17:15
[2024-06-10 17:13] LABS: EDUAAPPEAR Clear; EDUABILI Negative (Negative); EDUABLOOD 1+ (Negative); EDUACOLOR1 Orange; EDUAGLUCOSE Trace (Negative); EDUAKETONE Negative (Negative); EDUALEUKO 1+ (Negative); EDUANITRATE Positive (Negative); EDUAPROTEIN 2+ (Negative)
== END 2024-06-10 17:15 | disposition home or self-care (01) ==
PROVIDERS: Emergency Provider Nurse Practitioner; PCP Family Medicine
DX: R30.0 Dysuria (principal); E78.5 Hyperlipidemia, unspecified; I34.1 Nonrheumatic mitral (valve) prolapse
CPT/HCPCS: 81003; 87077; 87086; 87186; 99213; G0463

== ENCOUNTER 2024-10-01 14:24 | Outpatient (CLI) | payer OTHER, SELFPAY ==
[2024-10-01 15:14] LABS: Basophils Percent Auto 0.8 % (0.2-1.2); Eosinophils Absolute Auto 0.1 K/mm3 (0-0.3); Eosinophils Percent Auto 1.9 % (0-4.4); Hematocrit 37.8 % (37.0-47.0); Hemoglobin 12.5 g/dL (12.0-15.0); Immature Granulocyte Absolute 0.02 K/mm3 (0.00-0.031); Immature Granulocyte Percent A 0.4 % (0-0.5); Lymphocytes Absolute Auto 1.29 K/mm3 (0.9-3.2); Lymphocytes Percent Auto 24.6 % (18.3-44.2); Mean Corpuscular HGB Conc 33.1 g/dl (32-36); Mean Corpuscular Hemoglobin 29.1 pg (26-34); Mean Corpuscular Volume 87.9 fl (80-100); Mean Platelet Volume 11.3 fl (7.4-10.4); Monocytes Absolute Auto 0.4 K/mm3 (0.1-0.6); Monocytes Percent Auto 8.2 % (2.6-8.5); Neutrophils Absolute Auto 3.4 K/mm3 (1.3-6.7); Neutrophils Percent Auto 64.1 % (45.5-73.1); Platelet Count Result 173 k/mm3 (150-375); Red Cell Distribution Width 12.6 % (11.5-14.5); White Blood Count 5.3 K/mm3 (4.5-10.0)
[2024-10-01 15:38] LABS: Alanine Aminotransferase 31 U/L (6-35); Albumin Level 4.1 g/dL (3.5-5.1); Alkaline Phosphatase 51 U/L (38-126); Anion Gap 8 mmol/L (4-12); Aspartate Amino Transferase 26 U/L (14-36); Bilirubin,Total 0.3 mg/dL (0.2-1.3); Blood Urea Nitrogen 16 mg/dL (7-17); Carbon Dioxide 26 mmol/L (22-30); Chloride 105 mmol/L (98-107); Estimated Glomerular Filt Rate 60; Glucose 89 mg/dL (65-110); Potassium 3.9 mmol/L (3.4-5.0); Sodium 139 mmol/L (137-145)
[2024-10-01 16:02] LABS: Free T4 Free Thyroxine 0.85 ng/dL (0.78-2.19)
--- OUTSIDE RECORDS SUMMARY | 2024-10-01 16:10 | XMS_ITS | Clinical Summary ---
Author Organization [facility] Address [address] [place] [address] Care Team Providers Care Handtools Repairer Name Role Phone Meron Moses MD Primary Care Provider Allergies Active Allergy Reactions Criticality Noted Date Comments Sulfa (Sulfonamide Antibiotics) Dizziness Low 11/14 Medications SUMAtriptan (IMITREX) 50 mg tabletIndications:M igraine Take 1 tablet (50 mg total) by mouth once as needed for migraine May repeat dose once in 2 hours if no relief. Do not exceed 2 doses in 24 hours. 9 tablet 3 Active nitrofurantoin monohydrate (MACROBID) 100 mg capsule Take 1 capsule (100 mg total) by mouth 2 (two) times a day 10 capsule 4 Active ondansetron ODT (ZOFRAN-ODT) 4 mg disintegrating tablet Take 1 tablet (4 mg total) by mouth every 8 (eight) hours as needed for nausea or vomiting 20 tablet 4 Active Active Problems Problem Noted Date Diagnosed Date Chronic migraine without aura 05/20/2018 Surgical History Surgery Date Site/Laterality Comments CHOLECYSTECTOMY 07/17/2008 - 07/16/2009 TOE SURGERY 07/17/2012 - 07/16/2013 fracture repair TONSILLECTOMY AND ADENOIDECTOMY 07/17/1993 - 07/16/1994 AUGMENTATION MAMMAPLASTY 07/17/2009 - 07/16/2010 Medical History Medical History Date Comments Hx Other Medical Abnormal heartb eat Anemia Migraine headache Family History Medical History Relation Name Comments Diabetes Father Hypertension Father Breast cancer Maternal Grandmother onset 60s Endometrial cancer Mother hysterect evonne early 40s - 'pre-cancer cells' Hypertension Mother Hypothyroidism Mother Breast cancer Mother's Sister onset 40s Cancer Other 1 Family history of Cancer; Diabetes Other 2 Family history of Diabetes mellitus; Heart disease Other 3 Family history of Heart disease; Stroke Other 4 Family history of Stroke; Blood Clot Other 5 Family history of blood clots; Hypertension Other 6 Family history of Hypertension; Mental illness Other 7 Family histor y of Mental illness; Breast cancer Other 8 Family history of Cancer, breast; Colon cancer Paternal Grandfather Relation Name Status Comments Father Maternal Grandmother Mother Mother's Sister Other 1 Other 2 Other 3 Other 4 Other 5 Other 6 Other 7 Other 8 Paternal Grandfather Social History Tobacco Use Types Packs/Day Years Used Date Smoking Tobacco: Never Smokeless Tobacco: Never Alcohol Use Standard Drinks/Week Comments Yes 0 (1 standard drink = 0.6 oz pur e alcohol) Occasionally Personal Safety Answer Date Recorded Have you ever been in or are you currently in a harmful physical or emotional relationship or is someone making you feel afraid or unsafe? 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 Not on file Not on file Not on file Obstetrics History Para Term AB IAB SAB Ectopic Multiple Livin g Live Births 2 2 2 0 0 2 2 Date Outcome GA Total Labor Labor/2nd/3rd Weight Sex Type Anes PTL Shira A1 A5 Name Clin 2008 Term 3.033 kg (6 lb 11 oz) F Vag-S pont Living 2010 Term 2.977 kg (6 lb 9 oz) F Vag-S pont Living Last Filed Vital Signs Vital Sign Reading Time Taken Comments Blood Pressure 114/75 05/31/2024 8:55 AM JEWELRY CASTING MODEL MAKER APPRENTICE Pulse 77 05/31/2024 8:55 AM JEWELRY CASTING MODEL MAKER APPRENTICE Temperature 36.6 C (97.8 F) 05/31/2024 8:55 AM JEWELRY CASTING MODEL MAKER APPRENTICE Respiratory Rate 15 05/31/2024 8:55 AM JEWELRY CASTING MODEL MAKER APPRENTICE Oxygen Saturation 100% 05/31/2024 8:55 AM JEWELRY CASTING MODEL MAKER APPRENTICE Inhaled Oxygen Concentration - - Weight 79.4 kg (175 lb) 05/31/2024 8:55 AM JEWELRY CASTING MODEL MAKER APPRENTICE Height 162.6 cm (5' 4 ) 05/31/2024 8:55 AM JEWELRY CASTING MODEL MAKER APPRENTICE Body Mass Index 30.04 05/31/2024 8:55 AM JEWELRY CASTING MODEL MAKER APPRENTICE Plan of Treatment Health Maintenance Due Date Last Done Comments Cervical Cancer Screening 1984 Depression Screening 1984 Hepatitis C Screening 1984 DTaP/Tdap/Td Vaccine (1 - Tdap) 11/03/1995 Varicella Vaccines (1 of 2 - 13+ 2-dose series) 1997 Hepatitis B Screening 2002 Regular Well Visit/Exam 18-64 01/02/2021 01/03/2020 Covid-19 Vaccine (2 - 2023-2 5 season) 2024 06/14/2021 Influenza Vaccine (#1) 2024 HPV Vaccines Aged Out No longer eligi ble based on patient's age to complete this topic Pneumococcal vaccine <65 Aged Out No longer eligible based on patient's age to complete this topic Insurance [facility] Care Teams Handtools Repairer Relationship Specialty Start Date End Date Meron Moses MD [address] [facility] [address] [place] [id number] PCP - General 01/11/20
--- OUTSIDE RECORDS SUMMARY | 2024-10-01 16:10 | XMS_ITS | Clinical Summary ---
Author Organization [facility] Address [address] [place] [address] Care Team Providers Care Business Rules Analyst Name Role Phone Unavailable Primary Care Provider Unavailabl e Source Comments [facility],non-owned Affiliates and Associated Physician Practices is amultiple site organization consisting of ambulatory clinics and hospital sitesin [place], [place], [place] and [place]. This disclosure is being madepursuant to the Care Everywhere program and may not contain all information available regarding this patient. Last updated 18.[facility] Allergies No known active allergies Medications * Be aware that medications may not be up to date on this document. Alwaysverify current medications with the patient. Medication Sig Dispensed Refills Start Date End Date Status ibuprofen (MOTRIN) 800 MG tablet Take 1 Tab by mouth 3 times daily as needed for Pain 20 Tab 0 09/27/2015 Active ibuprofen (MOTRIN) 800 MG tablet Take 1 Tab by mouth 3 times daily as needed for Pain 20 Tab 0 09/27/2015 Active Social History Tobacco Use Types Packs/Day Years Used Date Smoking Tobacco: Never Alcohol Use Standard Drinks/Week Comments Yes 0 (1 standard drink = 0.6 oz pur e alcohol) occ. Sex and Gender Information Value Date Recorded Sex Assigned at Not on file Gender Identity Not on file Sexual Orientation Not on file Last Filed Vital Signs Vital Sign Reading Time Taken Comments Blood Pressure 104/67 09/27/2015 4:37 PM CDT Pulse 81 09/27/2015 4:37 PM CDT Temperature 36.8 C (98.2 F) 09/27/2015 4:37 PM CDT Respiratory Rate 12 09/27/2015 4:37 PM CDT Oxygen Saturation 100% 09/27/2015 11:49 AM CDT Inhaled Oxygen Concentration - - Weight 62.1 kg (137 lb) 09/27/2015 11:49 AM CDT Height 162.6 cm (5' 4 ) 09/27/2015 11:49 AM CDT Body Mass Index 23.52 09/27/2015 11:49 AM CDT Plan of Treatment Health Maintenance Due Date Last Done Comments PAP SMEAR 1984 HIV SCREENING 11/03/1999 HEPATITIS C SCREENING 10/29/2002 DTAP/TDAP/TD VACCINES (1 - Tdap) 11/03/2003 HEPATITIS B VACCINE (1 of 3 - 19+ 3-dose series) 11/03/2003 COVID-19 VACCINE (1 - 2023-2 5 season) 2024 INFLUENZA VACCINE (#1) 2024 DEPRESSION SCREENING 07/17/2024 ZOSTER VACCINE (1 of 2) 2034 HIB VACCINE Aged Out No longer eligi ble based on patient's age to complete this topic HPV VACCINE Aged Out No longer eligi ble based on patient's age to complete this topic MENINGOCOCCAL (Group B) VACC INE SHARED DECISION-MAKING Aged Out No longer eligibl e based on patient's age to complete this topic MENINGOCOCCAL GROUPS A/C/Y/W VACCINE Aged Out No longer eligible b ased on patient's age to complete this topic PNEUMOCOCCAL VACCINE Aged Out No long er eligible based on patient's age to complete this topic
--- OUTSIDE RECORDS SUMMARY | 2024-10-01 16:10 | XMS_ITS | Referral Summary ---
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 file Not on file Not on file Last Filed Vital Signs Vital Sign Reading Time Taken Comments Blood Pressure 114/75 05/31/2024 8:55 AM PAPER HANGER Pulse 77 05/31/2024 8:55 AM PAPER HANGER Temperature 36.6 C (97.8 F) 05/31/2024 8:55 AM PAPER HANGER Respiratory Rate 15 05/31/2024 8:55 AM PAPER HANGER Oxygen Saturation 100% 05/31/2024 8:55 AM PAPER HANGER Inhaled Oxygen Concentration - - Weight 79.4 kg (175 lb) 05/31/2024 8:55 AM PAPER HANGER Height 162.6 cm (5' 4 ) 05/31/2024 8:55 AM PAPER HANGER Body Mass Index 30.04 05/31/2024 8:55 AM PAPER HANGER Plan of Treatment Not on file Insurance [facility] HMO [facility] HMO/POS Care Teams Senior Web Designer Relationship Specialty Start Date End Date Meron Moses MD [address] [facility] [address] [place] [address] PCP - General 01/11/20
--- OUTSIDE RECORDS SUMMARY | 2024-10-01 16:10 | XMS_ITS | Data Portability ---
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 WWE overdue, will schedule. Not available 06/06/2022 16:29:57 09/20/2022 09/20/2022 healthy female exam patient desires std testing pap done mammogram at 39 contraception-ne xplanon in since 02/2021 FU 1 year or prn [email or web address] Not available 09/20/2022 11:45:52 01/25/2024 01/25/2024 Annual gynecological exam performed. Patient will come back in a year unless there are new symptoms. [email or web address] Not available 01/24/2024 16:17:49 Plan of Treatment Reminders Order Date Submit Date Provider Last Modified By Organization Details Last Modified Time Details Appointments None recorded. Lab None recorded. Referral None recorded. Procedures None recorded. Surgeries None recorded. Imaging MAMMO, screening, digital, bilateral 2023 024 [facility], [address], [place], [address], 05:01:33 Medication Orders Nexplanon 68 mg subdermal implant 2023 024 [email or web address] Not available 4 13:03:42 Patient TargetsNo targets recorded. Patient InstructionsNo instructions recorded. Reason for Referral None Reported. Results Created Date Observation Date Name Description Value Unit Range Abnormal Flag Note LastModifiedBy Organization Detail LastModifiedTime 02/24/20 21 02/23/2021 IMAGE GUIDE D PAP AND HPV REGAR DLESS image guided Pap, HPV regardless of Pap result SEE RESULT S BELOW CASE REPOR T: Cytol ogy Gynec ologi beata Repor t Case: [id number] Autho hayden lehman Provi miguel agnel: Tyra Perry, SMOOTH Colle cted: 02/23 1149 Order ing Locat ion: [place] Patho logy Recei fawad: 02/24 0043 First Scree n: Jeromy bob, Frida , CT Rescr een: Fiona Tejada Speci men: Scree tina Pap - Image d, Cervi x STATE MENT OF ADEQU ACY: Satis facto ry for evalu ation Trans forma tion zone compo nent absen t The absen ce of an endoc ervic al compo nent was confi rmed by an addit ional scree ner. FINAL DIAGN OSIS: Negat sim for Intra epith elial Lesio n or Malig dwight Funga l organ isms morph ologi conor consi stent with Laura da spp. Elect stuart pinto lexx d by Fiona Tejada on 2020 at 6:20 PM ----- ----- ----- ----- ----- ----- ----- ----- ----- ----- ----- ----- ----- ----- ----- ----- ----- ---- HPV RESUL TS: HPV mRNA E6/E7 : No HPV mRNA Detec nola NOTE: This high risk HPV mRNA assay detec ts fourt een high- risk HPV types (16, 18, 31, 33, 35, 39, 45, 51, 52, 56, 58, 59, 66, 68) witho ut diffe renti ation . CHART ABLE COMME NT: Note: This speci men was revie wed by a Cytot echno logis t and/o r Patho logis t (as indic ated in this repor t) after evalu ation using the Thinp rep Imagi ng Syste m. CLINI BEATA INFOR MATIO N: Menst rual Statu s: LMP (if appli cable ): 2020 Clini beata Histo ry/Pr eviou s Pap: Type of Neopl lisa (if appli cable ): Signi fican t Clini beata Findi ngs: Other Histo ry: Hormo rahat (if appli cable ): PAP EDUCA ALANIS L NOTE: The Pap Test is a scree tina test with an inher ent false negat sim rate. Liqui d-bas e sampl ing may decre ase, but will not elimi constantin, false negat sim resul ts. A negat sim resul t does not precl ude the prese nce and/o r devel opmen t of disea se, since the prese nce of abnor mal cells in the sampl e depen ds on the locat ion of the lesio n and sampl ing techn ique. Sathya nued regul ar scree tina is the best metho d of cance r preve ntion . If repor nola cytol ogic findi ng do not corre late with physi beata and/o r histo rical findi ngs, furth er inves tigat ion is recom luiz d, as clini conor manley nted. Not Available [facility] (Lab) [address] [facility], [place], [address], 02/24/2021 19:24:07 09/21/19 23 09/20/2022 IMAGE GUIDE D PAP AND HPV REGAR DLESS image guided Pap, HPV regardless of Pap result SEE RESULT S BELOW CASE REPOR T: Cytol ogy Gynec ologi beata Repor t Case: [id number] Autho rikevin g Provi miguel angel: Genesis Lai MD Colle cted: 09/20 1541 Order ing Locat ion: [place] Patho [place] Recei fawad: 09/21 0916 First Scree n: Edi Ross ed, CT Speci men: Scree tina Pap - Image d, Cervi x STATE MENT OF ADEQU ACY: Satis facto ry for evalu ation Trans forma tion zone compo nent prese nt FINAL DIAGN OSIS: Negat sim for Intra epith elial Lesio n or Alvino quintanilla (NIL) . Elect stuart pinto lexx d by Edi Ross ed, CT on 2022 at 3:48 PM ----- ----- ----- ----- ----- ----- ----- ----- ----- ----- ----- ----- ----- ----- ----- ----- ----- ---- HPV RESUL TS: HPV mRNA E6/E7 : No HPV mRNA Detec nola NOTE: This high risk HPV mRNA assay detec ts fourt een high- risk HPV types (16, 18, 31, 33, 35, 39, 45, 51, 52, 56, 58, 59, 66, 68) witho ut diffe renti ation . COMME NT: Note: This speci men was revie wed by a Cytot echno logis t and/o r Patho logis t (as indic ated in this repor t) after evalu ation using the Thinp rep Imagi ng Syste m. CLINI BEATA INFOR MATIO N: Menst rual Statu s: LMP (if appli cable ): Clini beata Histo ry/Pr eviou s Pap: Type of Neopl lisa (if appli cable ): Signi fican t Clini beata Findi ngs: Other Histo ry: Hormo rahat (if appli cable ): PAP EDUCA ALANIS L NOTE: The Pap Test is a scree tina test with an inher ent false negat sim rate. Liqui d-bas ed sampl ing may decre ase, but will not elimi constantin, false negat sim resul ts. A negat sim resul t does not precl ude the prese nce and/o r devel opmen t of disea se, since the prese nce of abnor mal cells in the sampl e depen ds on the locat ion of the lesio n and sampl ing techn ique. Sathya nued regul ar scree tina is the best metho d of cance r preve ntion . If repor nola cytol ogic findi ng do not corre late with physi beata and/o r histo rical findi ngs, furth er inves tigat ion is recom luiz d, as clini conor warra nted. Not Available [facility] (Lab) [address] [facility], [place], [address], 09/24/2022 16:50:48 09/21/19 23 09/20/2022 TRICH OMONA S VAGIN ROMULO (RRNA ) trichomonas vaginalis ribosomal RNA (rrna) Negati ve negati ve Not Available [facility] ([facility]) [address] [facility], [place], [address], 09/24/2022 16:50:48 09/21/19 23 09/20/2022 CT/GC (CRISTEL) , THINP REP VIAL chlamydia trachomatis, PCR Negati ve negati ve Not Available [facility] ([facility]) [address] [facility], [place], [address], 09/24/2022 16:50:49 09/21/19 23 09/20/2022 CT/GC (CRISTEL) , THINP REP VIAL neisseria gonorrhoeae, PCR Negati ve negati ve Not Available [facility] ([facility]) [address] [facility], [place], [address], 09/24/2022 16:50:49 01/25/20 24 01/25/2024 IMAGE GUIDE D PAP AND HPV REGAR DLESS image guided Pap, HPV regardless of Pap result SEE RESULT S BELOW CASE REPOR T: Cytol ogy Gynec ologi beata Repor t Case: [id number] Autho rikevin g Provi miguel angel: Jeanine Yang, LONNIE Colle cted: 01/24 1047 Order ing Locat ion: [place] Patho esthre Recei fawad: 01/25 0300 First Erika n: Tanisha Pastor, CT Speci men: Erika wilder Pap - Image d, Cervi x STATE MENT OF ADEQU ACY: Satis facto ry for evalu ation Trans forma tion zone compo nent prese nt ----- ----- ----- ----- ----- ----- ----- ----- ----- ----- ----- ----- ----- ----- ----- ----- ----- ---- FINAL DIAGN OSIS: Negat sim for Intra epith elial Lukas lentz or Alvino quintanilla ([facility]) . Elect stuart shirley by Tanisha Pastor, CT on 2023 at 12:24 PM ----- ----- ----- ----- ----- ----- ----- ----- ----- ----- ----- ----- ----- ----- ----- ----- ----- ---- HPV RESUL TS: HPV mRNA E6/E7 : No HPV mRNA Detec nola NOTE: This high risk HPV mRNA assay detec ts fourt een high- risk HPV types (16, 18, 31, 33, 35, 39, 45, 51, 52, 56, 58, 59, 66, 68) witho ut diffe renti ation . COMME NT: This speci men was revie wed by a Cytot echno logis t and/o r Patho logis t (as indic ated in this repor t) after evalu ation using the Thinp rep Imagi ng Syste m. CLINI BEATA INFOR MATIO N: Menst rual Statu s: LMP (if appli cable ): Clini beata Histo ry/Pr eviou s Pap: Type of Neopl lisa (if appli cable ): Signi fican t Clini beata Findi ngs: Other Histo ry: Hormo rahat (if appli cable ): PAP EDUCA ALANIS L NOTE: The Pap Test is a scree tina test with an inher ent false negat sim rate. Liqui d-bas ed sampl ing may decre ase, but will not elimi constantin, false negat sim resul ts. A negat sim resul t does not precl ude the prese nce and/o r devel opmen t of disea se, since the prese nce of abnor mal cells in the sampl e depen ds on the locat ion of the lesio n and sampl ing techn ique. Sathya nued regul ar scree tina is the best metho d of cance r preve ntion . If repor nola cytol ogic findi ng do not corre late with physi beata and/o r histo rical findi ngs, furth er inves tigat ion is recom luiz d, as clini conor manley nted. Not Available [facility] (Lab) [address], [place], [address], 01/30/2024 13:28:47 05/06/20 24 05/06/2024 BHCG, QUANT ITATI VE B-HCG <0.2 mIU/m L This assay was perfo rmed using [employer] ratio n reage nts and test kits. Value s obtai samanta with other assay metho ds or kits canno t be used inter perdomo eably . Refer ence Range s: Non-p regna nt, preme nopau indio women : 0.0-5 .3 mIU/m L Postm enopa usal women : 0.0-7 .0 mIU/m L Selene l Pregn blaise: Gesta alanis l Age bHCG Conc. - mIU/m L 3 Weeks 5.8 - 71.7 4 Weeks 9.5 - 750 5 Weeks 217-7 138 6 Weeks 158 - 31,79 5 7 Weeks 3,697 - 162,5 63 8 Weeks 32,06 5 - 149,5 71 9 Weeks 63,80 3 - 151,4 10 10 Weeks 46,50 9 - 186,9 77 12 Weeks 27,83 2 - 210,6 12 14 Weeks 13,95 0 - 62,53 0 15 Weeks 12,03 9 - 70,97 1 16 Weeks 9,040 - 56,45 1 17 Weeks 8,175 - 55,86 8 18 Weeks 8,099 - 58,17 6 Not Available [facility] (Lab) [address], [place], [address], 05/07/2024 07:51:27 Result Notes None recorded. Problems Name Problem SNOMED Code Status Onset Date Resolution Date Notes Provider Name and Address Organization Details Recorded Time Surveillance of subcutaneous contraceptive implant Active 2022 Genesis Acevedo MD [address], [place], [address], [facility] 11:46:04 Problem Notes None recorded. Procedures Surgical History Date Name Laterality Status Provider Name and Address Organization Details Recorded Time 024 MM Nexplanon insert completed Aguilar Lugo MD [address], [place], [address], [facility] 05/07/2024 13:31:39 024 Nexplanon Removal completed Aguilar Lugo MD [address], [place], [address], [facility] 05/07/2024 13:31:07 023 Date of Last Pap Smear completed Omayra Mcdowell [facility] 01/24/2024 16:18:38 021 Control Implant Insertion completed Genesis Acevedo MD [address], [place], [address], [facility] 03/03/2021 14:55:00 010 Breast Implants completed Diana Crowley [facility] 02/23/2021 10:43:05 009 Cholecystectomy completed Diana Crowley [facility] 02/23/2021 10:43:01 tonsilectomy/adeno ids completed Diana Crowley [facility] 02/23/2021 10:41:00 Imaging Results None recorded. Procedure Notes None recorded. Medical Equipment None Reported. Allergies Allergen ID Allergen Name Allergen Category Reaction Reaction Severity Criticality Documentation Date Start Date Code Code System Note Provider Name and Address Organization Details Recorded Time 64783 Substance with sulfonami de structure and antibacte rial mechanism of action (substanc e) medicatio n Not available Not available Not available 01/25/2024 [id number] [id number] SNOMED Omayra Mcdowell mayela [facility] 4 11:14:05 Medications Name Sig Start Date Stop Date Status Note LastModified by Organization Details LastModified Time prednisone 10 mg tablet PLEASE SEE ATTACHED FOR DETAILED DIRECTION S 06/06 completed Not Available Not Available Not Available ketoconazol e 2 % shampoo WASH AFFECTED AREA WITH SHAMPOO ONCE WEEKLY FOR MAINTENAN CE LEAVE LATHER ON FOR 5 MIN BEFORE RINSING active Not Available Not Available No t Available Apri 0.15 mg-0.03 mg tablet TAKE 1 TABLET BY MOUTH EVERY DAY 03/03 completed Not Available Not Available Not Available trazodone 50 mg tablet TAKE 1 TABLET BY MOUTH EVERY NIGHT AT BEDTIME NEEDED FOR INSOMNIA 02/23 completed Not Available Not Available Not Available fluconazole 150 mg tablet TAKE 1 TABLET (150 MG TOTAL) BY MOUTH ONCE FOR 1 DOSE. active Not Available Not Available No t Available fluconazole 200 mg tablet TAKE 1 TABLET BY MOUTH ONCE A WEEK FOR TWO WEEKS 06/06 completed Not Available Not Available Not Available ondansetron HCl 4 mg tablet TAKE 1 TABLET BY MOUTH EVERY 8 HOURS 06/06 completed Not Available Not Available Not Available fluoxetine 10 mg tablet TAKE 1 TABLET BY MOUTH EVERY DAY 02/23 completed Not Available Not Available Not Available sulfamethox azole 800 mg-trimetho prim 160 mg tablet TAKE 1 TABLET BY MOUTH EVERY 12 HOURS FOR 7 DAYS 06/06 completed Not Available Not Available Not Available omeprazole 40 mg capsule,del ayed release TAKE 1 CAPSULE BY MOUTH DAILY active Not Available Not Available No t Available amitriptyli ne 10 mg tablet TAKE 2 TABLETS BY MOUTH EVERY DAY AT BEDTIME 09/20 completed Not Available Not Available Not Available cephalexin 500 mg capsule TAKE 1 CAPSULE BY MOUTH EVERY 12 HOURS active Not Available Not Available No t Available hyoscyamine sulfate 0.125 mg tablet TAKE 1 TABLET BY MOUTH FOUR TIMES DAILY NEEDED FOR DYSPEPSIA active Not Available Not Available No t Available ketoconazol e 2 % topical cream APPLY TWICE DAILY TO RASH X 4-6WEEKS, THEN APPLY ONCE A WEEK FOR MAINTENAN CE active Not Available Not Available No t Available fluoxetine 20 mg capsule TAKE 1 CAPSULE BY MOUTH ONCE DAILY 02/23 completed Not Available Not Available Not Available escitalopra m 10 mg tablet TAKE ONE TABLET BY MOUTH DAILY 06/06 completed Not Available Not Available Not Available escitalopra m 20 mg tablet TAKE 1 TABLET BY MOUTH DAILY active Not Available Not Available No t Available nitrofurant oin monohydrate /macrocryst als 100 mg capsule TAKE 1 CAPSULE BY MOUTH TWICE A DAY active Not Available Not Available No t Available fluconazole active Not Available Not A vailable Not Available nitrofurant oin active Not Available Not Available Not Available Nexplanon 68 mg subdermal implant Inject 1 implant by subcutane ous route. 2023 active Not Available Not Available Not Avai lable Vitals Date Recorded Body height Body mass index (BMI) Body weight Systolic blood pressure Diastolic blood pressure Provider Name and Address Organization Details Last Updated DateTime 03/03/2021 154.94 cm 29.9 kg/m2 77557.59 g 128 mm[Hg] 81 mm[Hg] [facility] 1 14:42:00 Date Recorded Body height Body mass index (BMI) Body weight Systolic blood pressure Diastolic blood pressure Provider Name and Address Organization Details Last Updated DateTime 06/06/2022 154.94 cm 32.3 kg/m2 33047.3 g 130 mm[Hg] 70 mm[Hg] [facility] 2 16:01:22 Date Recorded Body height Body mass index (BMI) Body weight Systolic blood pressure Diastolic blood pressure Provider Name and Address Organization Details Last Updated DateTime 09/20/2022 154.94 cm 32.8 kg/m2 29818.92 g 116 mm[Hg] 76 mm[Hg] Katja Thompsonestellalisbeth [facility] 3 11:16:06 Date Recorded Body height Body mass index (BMI) Body weight Systolic blood pressure Diastolic blood pressure Provider Name and Address Organization Details Last Updated DateTime 01/25/2024 154.94 cm 33.1 kg/m2 32708.66 g 115 mm[Hg] 74 mm[Hg] Omayra Jeremias [facility] 4 11:13:46 Date Recorded Body height Body mass index (BMI) Body weight Systolic blood pressure Diastolic blood pressure Provider Name and Address Organization Details Last Updated DateTime 05/07/2024 154.94 cm 33.3 kg/m2 50624.98 g 111 mm[Hg] 74 mm[Hg] Helga Florian [facility] 4 12:38:18 Social History Question Answer Notes LastModified by Organizat ion Details LastModified Time Tobacco Smoking Status Never Smoker Arnav Singleton [facility] 09/20/2022 10:54:38 Do You Have An Advance Directive? No [email or web address] Information n ot available 02/23/2021 What Is Your Level Of Alcohol Consumption? Occasional [email or web address] Information not available 02/23/2021 How Many Years Have You Consumed Alcohol? 16 [email or web address] Information not available 02/23/2021 Are You Blind Or Do You Have Difficulty Seeing? No [email or web address] Information n ot available 02/23/2021 What Is Your Level Of Caffeine Consumption? Occasional [email or web address] Information not available 02/23/2021 How Much Tobacco Do You Chew? None [email or web address] Information not available 02/23/2021 In The 14 Days Before Symptom Onset, Have You Had Close Contact With A Laboratory-confirm ed COVID-19 While That Case Was Ill? No Information n ot available 02/23/2021 In The 14 Days Before Symptom Onset, Have You Had Close Contact With A Person Who Is Under Investigation For COVID-19 While That Person Was Ill? No [email or web address] Information not available 02/23/2021 Have You Been To An Area Known To Be High Risk For COVID-19? No Information not available 02/23/2021 Are You Deaf Or Do You Have Serious Difficulty Hearing? Yes [email or web address] Information not available 02/23/2021 What Type Of Diet Are You Following? REGULAR [email or web address] Information n ot available 02/23/2021 What Is The Highest Grade Or Level Of School You Have Completed Or The Highest Degree You Have Received? 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 No [email or web address] Information not available 02/23/2021 Do You Use Protection During Sex? Usually [email or web address] Information not available 02/23/2021 Do You Use Your Seat Belt Or Car Seat Routinely? Yes Information not available 02/23/2021 Do You Have Smoke And Carbon Monoxide Detectors In Your Home? Yes [email or web address] Information not available 02/23/2021 How Much Tobacco Do You Smoke? No [email or web address] Information not available 02/23/2021 Do You Feel Stressed (tense, Restless, Nervous, Or Anxious, Or Unable To Sleep At Night)? [id number] Information not available 02/23/2021 Do You Use Any Illicit Or Recreational Drugs? No [email or web address] Information not available 02/23/2021 Do You Use Sunscreen Routinely? Yes [email or web address] Information not available 02/23/2021 Have You Used IV Drugs? No [email or web address] Information not available 02/23/2021 Sex: Unknown Functional Status Question Answer Note LastModified by Organizat ion Details LastModified Time Do you have difficulty walking or climbing stairs? No Information not available 09/20/2022 Are you able to walk? YESWOREST [email or web address] Information not available 02/23/2021 Are you able to care for yourself? Yes Information not available 09/20/2022 What is your exercise level? Moderate [email or web address] Information not available 02/23/2021 Mental Status None recorded. Family History Relationship Description Onset Age of this Age Resolved Age Notes LastModified by Organization Details LastModified Time Maternal Aunt Malignant tumor of breast [email or web address] Not available 2020 10:40:41 Maternal Aunt Disorder of thyroid gland [email or web address] Not available 2020 10:40:41 Maternal Grandmother Hypertensive disorder [email or web address] Not available 2020 10:40:41 Maternal Grandmother Malignant tumor of breast [email or web address] Not available 2020 10:40:41 Father Hypertensive disorder [email or web address] Not available 2020 10:40:41 Father Diabetes mellitus [email or web address] Not available 2020 10:40:41 Mother Hypertensive disorder [email or web address] Not available 2020 10:40:41 Mother Disorder of thyroid gland [email or web address] Not available 2020 10:40:41 Mother Malignant tumor of breast 50 [email or web address] Not available 2023 12:05:11 Mother Malignant tumor of breast [email or web address] Not available 01/2023 11:16:10 Maternal Grandfather Hypertensive disorder [email or web address] Not available 2020 10:40:41 Paternal Aunt Malignant tumor of breast [email or web address] Not available 2020 10:40:41 Paternal Grandmother Diabetes mellitus Not available 2020 10:40:41 Medical History Condition Response Anxiety Disorder Y Anemia Y Headaches Y Depression/ depression Y Gynecological History Statement/Question Response Abnormal Pap Y Flow Light Date of LMP 01/20/2024 On BCP's at Conception? N Was last menstrual period normal N STIs/STDs N HPV Vaccine N Duration of Flow (days) 3 Current Control Method Implant Age at First Child 23 Are cycles usually normal N Frequency of Cycle (Q days) 20 Sexually Active? Y Menses Monthly Y Age of first menstrual cycle 12 Date of Last Pap Smear 09/20/2022 Sexual Problems? N LMP Approximate Obstetrics History GPAL:G 2 P 2 0 0 2 Type Value Full Term 2 Living 2 Total 2 Past Encounters Encounter ID Performer Location Encounter Start Date Encounter Closed Date Diagnosis/Indication Diagnosis SNOMED-CT Code Diagnosis ICD10 Code Diagnosis Note [id number] Tyra Nina [place] [address] [address] 02/23/2021 10:34:51 02/23/2021 11:16:13 Gynecologic examination 31267282 Z01.419 Z11.51 Take Calcium with Vitamin D 1200mg daily if not receiving in daily diet. It is strongly advised to have an annual flu shot and up can obtain at most pharmacies . If you have not had a TDap shot in the last 10 years you should obtain one as well. Discussed with patient & provided with informatio n regarding Gardisil vaccine to prevent the 4 strains for HPV that cause cervical cancer if under age 26. Encourage safe sexual practices, to use condoms and limit partners if not already in a monogamous relationsh ip. Do monthly self breast exams. Have mammogram yearly or every other year depending on family history. BRCA testing is now available for patients with strong genetic history of female cancer. If interested contact the office. Pt undecided at this time. Discussed risk vs benefit especially with family history. Mother dx at 50. Engage in daily exercise of low impact aerobic exercise 45-60 minutes 4-5 times weekly. Avoid tobacco and illicit drugs as well as using moderation with alcohol intake less than 1-2 8 oz beverages daily. This lifestyle behavior pattern will lead to less health conditions and longer life span. If BMI greater than 25 weight watchers or dietary consult advised. Patient received above instructio ns, and questions have been answered. If you have any questions please call or respond to this email. Patient was made aware of the patient portal and may obtain a paper copy of today's plan if desired. [facility] [place] ion care management [id number] Z30.9 Pt has used nexplanon in the past and was happy with it. She wants to d/c ocp d/t headaches. Discussed risk vs benefit. Will call on the first day of cycle to schedule nexplanon placement. [id number] Genesis Acevedo MD [place] [address] [address] 03/03/2021 14:27:38 03/03/2021 15:04:39 Insertion of subcutaneous contraceptive [id number] Z30.9 [id number] MD Ralf Ly [address] [address] 06/06/2022 15:50:43 06/06/2022 17:00:04 Right lower quadrant pain 243542919 R10.31 Deep pain on intercourse [id number] N94.12 [id number] Genesis Acevedo MD [place] [address],[place] [address] 09/20/2022 10:54:26 09/20/2022 11:52:04 Gynecologic examination [id number] Z01.419 Surveillan ce of subcutaneous contraceptive implant 992984935 Z30.46 Venereal d isease screening 192049898 Z11.3 [id number] SHONNA Sams [place] [address],[place] [address] 01/25/2024 11:04:07 01/25/2024 11:40:01 Gynecologic examination 40304170 Z01.419 [facility] - nexplanon. Will 03/03/2024. Pt aware, RTC prior to expiration date for removal/re placement if desired.pa p updated per pt preference declined STI screenmamm ogram order givengenet ic testing discussed, handout givenencou raged annual exam with PCP It is strongly advised to have an annual flu shot and up can obtain at most pharmacies . If you have not had a TDap shot in the last 10 years you should obtain one as well. Discussed with patient & provided with informatio n regarding HPV vaccine if applicable . Encourage safe sexual practices, to use condoms and limit partners if not already in a monogamous relationsh ip. Do monthly self breast exams. BRCA testing is now available for patients with strong genetic history of female cancer. If interested contact the office. Engage in regular exercise. Avoid tobacco and illicit drugs. This lifestyle behavior pattern will lead to less health conditions and longer life span. If BMI greater than 25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
== END 2024-10-01 14:25 | disposition home or self-care (01) ==
PROVIDERS: PCP Family Medicine; Visit Provider Physician Assistant
DX: D64.9 Anemia, unspecified (principal); E07.9 Disorder of thyroid, unspecified; R53.83 Other fatigue; R61 Generalized hyperhidrosis; R41.89 Other symptoms and signs involving cognitive functions and awareness
CPT/HCPCS: 36415; 80053; 82607; 82652; 84439; 84443; 85025

== ENCOUNTER 2025-01-19 15:54 | Emergency (ER) | payer OTHER, SELFPAY ==
--- OUTSIDE RECORDS SUMMARY | 2025-01-19 15:57 | XMS_ITS | Clinical Summary ---
Author Organization [facility] Address [address] [place] [address] Care Team Providers Care Movie Critic Name Role Phone Unavailable Primary Care Provider Unavailabl e Source Comments [facility],non-owned Affiliates and Associated Physician Practices is amultiple site organization consisting of ambulatory clinics and hospital sitesin [place], [place], [place] and [place]. This disclosure is being madepursuant to the Care Everywhere program and may not contain all information available regarding this patient. Last updated 18.[facility] Allergies No known active allergies Medications * Be aware that medications may not be up to date on this document. Alwaysverify current medications with the patient. ibuprofen (MOTRIN) 800 MG tablet Take 1 [...] = 0.6 oz pur e alcohol) occ. Comments Unknown Sex and Gender Information Value Date Recorded Sex Assigned at Not on file Legal Sex Female 11:47 AM CDT Gender Identity Not on file Sexual Orientation [...] 11:49 AM CDT Height 162.6 cm (5' 4) 09/27/2015 11:49 AM CDT Body Mass Index 23.52 09/27/2015 11:49 AM CDT Plan of Treatment Health Maintenance Due Date Last Done Comments LIPID TESTING 1984 MAMMOGRAM 1984 HIV SCREENING 11/03/1999 HEPATITIS C SCREENING 10/29/2002 DTAP/TDAP/TD VACCINES (1 - Tdap) 11/03/2003 HEPATITIS B VACCINE (1 of 3 - 19+ 3-dose series) 11/03/2003 COVID-19 VACCINE ( - 2023-2 5 season) 2024 DEPRESSION SCREENING 07/17/2024 INFLUENZA VACCINE (Season Ended) 2025 ZOSTER VACCINE (1 of 2) 2034 HIB [...] patient's age to complete this topic Insurance [employer]
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
--- OUTSIDE RECORDS SUMMARY | 2025-01-19 15:58 | XMS_ITS | Clinical Summary ---
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 Not on file Not [...] Comments Blood Pressure 114/75 05/31/2024 8:55 AM SMOKE INSPECTOR Pulse 77 05/31/2024 8:55 AM SMOKE INSPECTOR Temperature 36.6 C (97.8 F) 05/31/2024 8:55 AM SMOKE INSPECTOR Respiratory Rate 15 05/31/2024 8:55 AM SMOKE INSPECTOR Oxygen Saturation 100% 05/31/2024 8:55 AM SMOKE INSPECTOR Inhaled Oxygen Concentration - - Weight 79.4 kg (175 lb) 05/31/2024 8:55 AM SMOKE INSPECTOR Height 162.6 cm (5' 4) 05/31/2024 8:55 AM SMOKE INSPECTOR Body Mass Index 30.04 05/31/2024 8:55 AM SMOKE INSPECTOR Plan of Treatment Health Maintenance Due Date Last Done Comments Breast Cancer Screening-Mammogram 1984 Cervical Cancer Screening 1984 Depression Screening 1984 Hepatitis C Screening 1984 DTaP/Tdap/Td Vaccine (1 - Tdap) 11/03/1995 Varicella Vaccines (1 of 2 - 13+ 2-dose series) 1997 Hepatitis B Screening 2002 Regular Well Visit/Exam 18-64 01/02/2021 01/03/2020 Covid-19 Vaccine (2 - 2023-2 5 season) 2024 06/14/2021 Influenza Vaccine (Season Ended) 2025 HPV Vaccines Aged Out No longer eligi ble based on patient's age to complete this topic Pneumococcal vaccine <65 Aged Out No longer eligible based on patient's age to complete this topic Insurance [facility] [employer] [facility]POS Care Teams Grants Analyst Relationship Specialty Start Date End Date Meron Moses MD [address] [facility] [address] [place] [id number] PCP - General 01/11/20
--- OUTSIDE RECORDS SUMMARY | 2025-01-19 15:58 | XMS_ITS | Referral Summary ---
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 Not on file Not on file Last Filed Vital Signs Vital Sign Reading Time Taken Comments Blood Pressure 114/75 05/31/2024 8:55 AM ALTERNATIVE ENERGY TECHNICIAN Pulse 77 05/31/2024 8:55 AM ALTERNATIVE ENERGY TECHNICIAN Temperature 36.6 C (97.8 F) 05/31/2024 8:55 AM ALTERNATIVE ENERGY TECHNICIAN Respiratory Rate 15 05/31/2024 8:55 AM ALTERNATIVE ENERGY TECHNICIAN Oxygen Saturation 100% 05/31/2024 8:55 AM ALTERNATIVE ENERGY TECHNICIAN Inhaled Oxygen Concentration - - Weight 79.4 kg (175 lb) 05/31/2024 8:55 AM ALTERNATIVE ENERGY TECHNICIAN Height 162.6 cm (5' 4) 05/31/2024 8:55 AM ALTERNATIVE ENERGY TECHNICIAN Body Mass Index 30.04 05/31/2024 8:55 AM ALTERNATIVE ENERGY TECHNICIAN Plan of Treatment Not on file Insurance [facility] H[facility]POS Care Teams Painter Barrel Relationship Specialty Start Date End Date Meron Moses MD [address] [facility] [address] [place] [address] PCP - General 01/11/20
--- NOTE | 2025-01-19 16:10 | ED.SKABFB ---
HPI - Skin/Abscess/Foreign Bdy General Chief complaint: Skin/Abscess/Foreign Body Stated complaint: Skin Sore /Finger patient presents to express care with complaints of pain, swelling, redness to left index finger that began over the last couple days. Patient noted 2 weeks ago she was in her garden and did have several thorn hurley pricks and had some that she had to get out. Thinks that maybe she did not get everything out of this area. Denies numbness, tingling, drainage from the area Related Data Allergies Allergy/AdvReac Type Severity Reaction Status Date / Time sulfamethoxazole (From AdvReac Mild Dizziness Verified 12/17/24 11:13 Bactrim) trimethoprim (From Bactrim) AdvReac Mild Dizziness Verified 12/17/24 11:13 Review of Systems Constitutional: Constitutional: Reports as per HPI, Denies chills, Denies fatigue, Denies fever(s) and Denies weakness Eyes: Eyes: Reports no additional eye complaints Cardiovascular: Cardiovascular: Reports no additional cardiovascular complaints Respiratory: Respiratory: Reports no additional respiratory complaints Gastrointestinal: Gastrointestinal: Reports no additional gastrointestinal complaints Genitourinary: Genitourinary: Reports no additional female genitourinary complaints Musculoskeletal: Musculoskeletal: Reports as per HPI, Reports arthralgias and Reports joint swelling Integumentary/Breasts: Skin/Breast: Reports as per HPI and Reports erythema Neurologic: Reports as per HPI, Denies numbness and Denies weakness Psychiatric: Psychiatric: Reports no additional psychiatric complaints Endocrine: Endocrine: Reports no additional endocrine complaints Hematologic/Lymphatic: Hematologic/Lymphatic: Reports no additional hematologic/lymphatic complaints Allergic/Immunologic: Allergic/Immunologic: Reports no additional allergic/immunologic complaints [facility] Past Medical History Medical History Hyperlipidemia KENNEDY and COPD overlap syndrome Anxiety MVP (mitral valve prolapse) Cholecystitis Migraines, neuralgic Surgical History Surgical History History of tonsillectomy and adenoidectomy H/O breast augmentation Hx laparoscopic cholecystectomy Social History Social History Social History: Smoking status: Never smoker Second hand tobacco smoke exposure: No Alcohol intake: current Alcohol use details: Occasionally Substance use: never Substance use type: does not use Do You Feel Safe in your Home?: Yes Lack of Transportation: No Lack of Food: Never True Current Housing: I Have Housing Concerned About Future Housing: No Difficulty Paying Gas/Electric Bills: No Difficulty Paying for Meds: No Currently Unemployed: No Education: Bachelor's Degree Living arrangements: with family Occupation/Education: occupation Gender identity (if verbalized by the patient): Female Sexual Orientation (if Verbalized by the Patient): Straight or Heterosexual Spiritual care concerns: No Agree to blood products: Yes Exam Const: General: healthy appearing and no acute distress Nutritional Appearance: well nourished Orientation/consciousness: patient oriented x3 Limitations: no limitations Resp: Effort & Inspection: normal respiratory effort Auscultation: clear to auscultation bilaterally Cardio: Rate: regular rate Rhythm: regular rhythm Skin: General skin exam: No normal color Neuro: General: patient oriented x3 Speech: normal speech Gait exam (Neuro): Normal gait present Extrem: Left upper extremity: hand abnormal to inspection joint swelling, normal capillary refill, tenderness of the 2nd digit, normal ROM of fingers, warmth of the 2nd digit and swelling of the 2nd digit; no abrasions, no lacerations, no ecchymosis and no crepitus Psych: Mental Status: mental status grossly normal Affect: normal affect Attitude: cooperative Course Course Level of Care: Express Care Visit Procedures Foreign Body Removal Foreign Body #1: Foreign Body Removal Date: 01/19/25 Foreign Body Removal Time: 16:27 Site: left and hand (2nd digit ) Description of foreign body: other (thorn ) Sedation/Analgesia: other (1% lidocaine- 1mL ) Technique: removal with forceps and incision made to facilitate removal Confirmed by:: direct visualization Complications: none Post-procedure exam: awake, alert Neurovascular: normal distal pulse MDM - Skin/Abscess/Foreign Bdy MDM Narrative Medical decision making narrative: there is small foreign body removed from skin. Discharge instructions reviewed with patient, as well as provided in writing per nursing staff. The instructions also include specific and strict return/GO TO THE ER as well as f/u information. All questions have been answered, and the patient deny any further questions with discharge and discharge plan. Differential Diagnosis Differential diagnosis: Likely cellulitis, insect bites, impetigo, contact dermatitis and other ( Foreign body) Medical Records Attestation: I reviewed the patient's medical records. Discharge Plan Discharge Clinical Impression: Foreign body in finger-infected Patient Disposition: Home Condition: Stable Instructions: Antibiotic Form, Cellulitis (ED) Additional Instructions: Clean with soap and water only; Avoid using alcohol and peroxide. Elevate the affected area if possible Alternate Tylenol/ibuprofen for as needed for pain Acetaminophen(Tylenol) 650-1000mg every 4-6hours with max of 4000mg/day. Nonsteroidal anti-inflammatory agent (NSAIDs-ibuprofen): 400mg every 4-6hours with max 2400mg/day Take antibiotic until it's gone. Please schedule a follow up visit with your personal physician for further evaluation and treatment within 3-5days OR if your symptoms persist, change or worsen significantly before you can contact your personal physician then please, without delay, go to the emergency department for further evaluation. Patient Language: Stateless Prescriptions: New cephalexin 500 mg capsule 500 mg PO Q12H Qty: 20 0RF No Action escitalopram oxalate 20 mg tablet See Rx Instructions .ROUTE .COMPLEX Qty: 90 0RF Dose Instruction: TAKE 1 TABLET BY MOUTH DAILY Rx Instructions: TAKE 1 TABLET BY MOUTH DAILY Follow-up/Referrals: UNKNOWN,DOCTOR [Primary Care Provider] - Time of Disposition: 16:30
[2025-01-19 16:12] VITALS: BP 127/77; PULSE 76; RESP 20; TEMP 36.6; O2SAT 100
== END 2025-01-19 16:33 | disposition home or self-care (01) ==
PROVIDERS: Emergency Provider Nurse Practitioner Family
DX: S60.451A Superficial foreign body of left index finger, initial encounter (principal); L08.9 Local infection of the skin and subcutaneous tissue, unspecified; W60.XXXA Contact with nonvenomous plant thorns and spines and sharp leaves, initial encounter; E78.5 Hyperlipidemia, unspecified; I34.1 Nonrheumatic mitral (valve) prolapse; J44.9 Chronic obstructive pulmonary disease, unspecified; F41.9 Anxiety disorder, unspecified
CPT/HCPCS: 10120; 99213; G0463; J2003

== ENCOUNTER 2025-04-20 15:31 | Emergency (ER) | payer OTHER, SELFPAY ==
[2025-04-20 15:49] VITALS: BP 112/70; PULSE 104; RESP 16; TEMP 36.8; O2SAT 100
[2025-04-20 15:52] LABS: EDUAAPPEAR Cloudy; EDUABILI Negative (Negative); EDUABLOOD 1+ (Negative); EDUACOLOR1 Orange; EDUAGLUCOSE Trace (Negative); EDUAKETONE Negative (Negative); EDUALEUKO Trace (Negative); EDUANITRATE Positive (Negative); EDUAPH 7.0; EDUAPROTEIN Negative (Negative); EDUASPGRAVITY 1.020; EDUAUROBILI 1.0
--- NOTE | 2025-04-20 16:03 | ED.FEMALEGU ---
HPI - Female Genitourinary General Chief complaint: Urogenital-Female Stated complaint: UTI SYMPTOMS / EARS Source: patient and RN notes reviewed Mode of arrival: ambulatory Limitations: no limitations History of Present Illness HPI Narrative: 39-year-old female presented for complaint of burning with urination, frequency and suprapubic pressure. Noted small amount of blood in the urine today. Onset 2 days. Denies nausea, vomiting, abdominal pain, flank pain, constipation, diarrhea, fevers or chills. Took azo today. Patient also reports bilateral ear pain, right is worse than left. Endorses chronic decreased hearing but says the hearing is also worse than normal. Reports chronic nasal congestion and drainage. She denies associated dizziness tinnitus, nausea, vomiting, fevers or chills. Related Data Home Medications ?Medication ?Instructions ?Recorded ?Confirmed ?Last Taken ?Type omeprazole 10 mg capsule,delayed 10 mg PO DAILY 04/20/25 Unknown History release Allergies Allergy/AdvReac Type Severity Reaction Status Date / Time sulfamethoxazole (From AdvReac Mild Dizziness Verified 12/17/24 11:13 Bactrim) trimethoprim (From Bactrim) AdvReac Mild Dizziness Verified 12/17/24 11:13 Review of Systems Review of Systems: CONSTITUTIONAL: Denies body aches, fever, chills, or sweats. CARDIOVASCULAR: Denies chest pain, palpitations, or edema. RESPIRATORY: Denies cough or dyspnea. GASTROINTESTINAL: Denies abdominal pain, nausea, vomiting, or diarrhea. GENITOURINARY: Reports dysuria, frequency, urgency, hematuria, denies flank pain, discharge SKIN: Denies rash, itching, or wounds. MUSCULOSKELETAL: Denies back pain or myalgia. [facility] Past Medical History Medical History Hyperlipidemia KENNEDY and COPD overlap syndrome Anxiety MVP (mitral valve prolapse) Cholecystitis Migraines, neuralgic Surgical History Surgical History History of tonsillectomy and adenoidectomy H/O breast augmentation Hx laparoscopic cholecystectomy Social History Social History Social History: Smoking status: Never smoker Second hand tobacco smoke exposure: No Alcohol intake: current Alcohol use details: Occasionally Substance use: never Substance use type: does not use Do You Feel Safe in your Home?: Yes Lack of Transportation: No Lack of Food: Never True Current Housing: I Have Housing Concerned About Future Housing: No Difficulty Paying Gas/Electric Bills: No Difficulty Paying for Meds: No Currently Unemployed: No Education: Bachelor's Degree Living arrangements: with family Occupation/Education: occupation Gender identity (if verbalized by the patient): Female Sexual Orientation (if Verbalized by the Patient): Straight or Heterosexual Spiritual care concerns: No Agree to blood products: Yes Comments At time of signature, I have reviewed and agree with nursing past medical, surgical, social and family history unless otherwise noted. Please see nursing chart for further information. There is no relevant family history pertinent to the presenting complaint Exam Narrative: GENERAL: Well-appearing and in no acute distress. ENT: Mucous membranes pink and moist. Bilateral TMs normal a reflex. NECK: Normal AROM. Supple. CHEST: No respiratory distress. Clear to auscultation. HEART: Regular rate and rhythm. ABDOMEN: Soft, nontender, nondistended, normal active bowel sounds. No CVA tenderness SKIN: Warm, dry, no rash. NEURO: No focal deficits. Alert and oriented x3. Gait steady. PSYCH: Normal affect. Course Course Emergency Course: Patient is aware of diagnosis, understands and agrees to treatment plan. Anticipatory guidance given. Patient agrees to follow-up as directed and is aware of reasons to seek care at the emergency department. Portions of this record may have been created with voice recognition software Level of Care: Express Care Visit Vital Signs Vital signs: Vital Signs Temperature 98.2 F 04/20/25 15:49 Pulse Rate 104 H 04/20/25 15:49 Respiratory Rate 16 04/20/25 15:49 Blood Pressure 112/70 04/20/25 15:49 Pulse Oximetry 100 04/20/25 15:49 Oxygen Delivery Room Air 04/20/25 15:49 Temperature 98.2 F 04/20/25 15:49 Pulse Rate 104 H 04/20/25 15:49 Respiratory Rate 16 04/20/25 15:49 Blood Pressure 112/70 04/20/25 15:49 Pulse Oximetry 100 04/20/25 15:49 Oxygen Delivery Room Air 04/20/25 15:49 Reviewed MDM - Female Genitourinary MDM Narrative Medical decision making narrative: Discussed physical exam findings and urine dip. Will culture. Will send Augmentin at this time as patient reports chronic allergic rhinitis.. Advised supportive measures and signs/symptoms to go to the ER. Pt is appropriate for outpt treatment and f/u. Differential Diagnosis Differential diagnosis: Likely urinary tract infection, vaginitis, cystitis and other Lab Data Labs: Lab Results 04/20/25 Range/Units 15:48 POC Urine Color [place] POC Urine Clarity Cloudy POC Urine pH 7.0 POC Ur Specif [place] 1.020 POC Urine Protein Negative (Negative) POC Ur Glucose (UA) Trace (Negative) POC Urine Ketones Negative (Negative) POC Urine Blood 1+ (Negative) POC Urine Nitrite Positive (Negative) POC Urine Bilirubin Negative (Negative) POC Urine Urobilinogen 1.0 POC U Leukocyte Esteras Trace (Negative) Discharge Plan Discharge Clinical Impression: Urinary tract infection, Acute otalgia Patient Disposition: Home Condition: Stable Instructions: Antibiotic Form, Urinary Tract Infection in Women (ED) Additional Instructions: UTI: Take the antibiotic as prescribed The urine will be sent of for a culture to identify what type of bacteria is causing your infection. If the culture shows that the antibiotic will not get rid of your infection, you will be notified and a new antibiotic will be called in for you. Increase water intake Ear pain: Recommend Flonase spray and Zyrtec (or Claritin/Selina) Tylenol 1000mg every 8 hours as needed for pain Rest, fluids, and increase humidity of the air at home. Follow up with your primary care provider in 1 week. Go to the ER for worsening symptoms or concerns. Patient Language: Wolof Prescriptions: New amoxicillin-pot clavulanate [Augmentin] 500-125 mg tablet 1 tablet PO Q12H 7 Days Qty: 14 0RF No Action cephalexin 500 mg capsule 500 mg PO Q12H Qty: 20 0RF omeprazole 10 mg capsule,delayed release(DR/EC) 10 mg PO DAILY escitalopram oxalate 20 mg tablet See Rx Instructions .ROUTE .COMPLEX Qty: 90 1RF Dose Instruction: TAKE 1 TABLET BY MOUTH DAILY Rx Instructions: TAKE 1 TABLET BY MOUTH DAILY Follow-up/Referrals: Nicholas Noel MD [Primary Care Provider, Family Practice]
== END 2025-04-20 16:12 | disposition home or self-care (01) ==
PROVIDERS: Emergency Provider Nurse Practitioner Family; PCP Family Medicine
DX: N39.0 Urinary tract infection, site not specified (principal); H92.03 Otalgia, bilateral; E78.5 Hyperlipidemia, unspecified; J44.9 Chronic obstructive pulmonary disease, unspecified; I34.1 Nonrheumatic mitral (valve) prolapse; F41.9 Anxiety disorder, unspecified
CPT/HCPCS: 81003; 87086; 99213; G0463